=== PATIENT | female | born 1965 | race Caucasian/White ===

== ENCOUNTER 2018-05-14 14:17 | Emergency (ER) | payer OTHER ==
--- NOTE | 2018-05-14 14:41 | PDOC ---
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
[2018-05-14 14:42] VITALS: BP 110/75; PULSE 85; BMI 28.8
[2018-05-14 15:11] LABS: BASO % 0.6 % (0-2.0); EOS % 0.8 % (0-4.5); HEMATOCRIT 32.8 % (32.4-45.2); HEMOGLOBIN 10.4 GM/dL (10.7-15.3); LYMPH % 24.3 % (8-40); MCH 22.4 pg (25.7-33.7); MCHC 31.8 g/dl (32.0-36.0); MEAN CELL VOLUME 70.5 fl (80-96); MEAN PLT VOLUME 8.2 fl (7.5-11.1); MONO % 1.1 % (3.8-10.2); NEUT % 73.2 % (42.8-82.8); PLATELET COUNT 517 K/MM3 (134-434); RBC 4.65 M/mm3 (3.60-5.2); RDW 17.2 % (11.6-15.6); WHITE BLOOD COUNT 14.1 K/mm3 (4.0-10.0)
[2018-05-14 15:31] LABS: URINE APPEARANCE CLEAR; URINE BILIRUBIN NEGATIVE (<2.0 mg/dL); URINE COLOR STRAW; URINE GLUCOSE (UA) NEGATIVE (NEGATIVE); URINE KETONE NEGATIVE (NEGATIVE); URINE LEUK ESTERASE 3+ (NEGATIVE); URINE NITRITE NEGATIVE (NEGATIVE); URINE PROTEIN NEGATIVE (NEGATIVE); URINE UROBILINOGEN NEGATIVE mg/dL (0.2-1.0)
--- NOTE | 2018-05-14 15:34 | PDOC ---
History of Present Illness - General Chief Complaint: Lightheaded Stated Complaint: DIZZY Time Seen by Provider: 05/14/18 14:36 History Source: Patient - History of Present Illness Associated Symptoms: reports: fever/chills, nausea/vomiting. denies: chest pain , headaches, shortness of breath Past History - Past Medical History Allergies/Adverse Reactions: Allergies Allergy/AdvReac Type Severity Reaction Status Date / Time ibuprofen [From Advil] AdvReac Verified 05/14/18 14:38 Home Medications: Ambulatory Orders Metoclopramide HCl [Reglan] 5 mg PO TID 03/01/15 Omeprazole Magnesium [Prilosec (OTC)] 40 mg PO DAILY 03/01/15 Sulfamethoxazole/Trimethoprim [Bactrim Ds Tablet] 1 each PO BID #14 tablet 05/14 Anemia: Yes Asthma: No Cancer: No Cardiac Disorders: No CVA: No COPD: No CHF: No Dementia: No Diabetes: No GI Disorders: Yes Disorders: No HTN: No Hypercholesterolemia: No Liver Disease: No Seizures: No Thyroid Disease: No - Surgical History Abdominal Surgery: Yes (GASTRIC BYPASS-1999) Appendectomy: No Cardiac Surgery: No Cholecystectomy: No Lung Surgery: No Neurologic Surgery: No Orthopedic Surgery: No - Suicide/Smoking/Psychosocial Hx Smoking Status: No Smoking History: Never smoked Have you smoked in the past 12 months: No Number of Cigarettes Smoked Daily: 0 Hx Alcohol Use: No Drug/Substance Use Hx: No Substance Use Type: None Hx Substance Use Treatment: No Review of Systems - Review of Systems Constitutional: Yes: Chills Respiratory: No: Shortness of Breath Cardiac (ROS): No: Chest Pain ABD/GI: Yes: Nausea. No: Diarrhea, Vomiting, Abdominal cramping : No: Dysuria *Physical Exam - Vital Signs Last Vital Signs Temp Pulse Resp BP Pulse Ox 97.5 F L 85 16 110/75 99 05/14/18 14:38 05/14/18 14:38 05/14/18 14:38 05/14/18 14:38 05/14/18 14:38 - Physical Exam General Appearance: Yes: Appropriately Dressed. No: Apparent Distress HEENT: positive: Normal Voice Neck: positive: Supple Respiratory/Chest: positive: Lungs Clear, Normal Breath Sounds. negative: Respiratory Distress Cardiovascular: positive: Regular Rate, S1, S2 Gastrointestinal/Abdominal: positive: Soft. negative: Tender Musculoskeletal: negative: CVA Tenderness Integumentary: positive: Dry, Warm Neurologic: positive: Fully Oriented, Alert, Normal Mood/Affect Moderate Sedation - Procedure Monitoring Vital Signs: Procedure Monitoring Vital Signs Temperature 97.5 F L 05/14/18 14:38 Pulse Rate 85 05/14/18 14:38 Respiratory Rate 16 05/14/18 14:38 Blood Pressure 110/75 05/14/18 14:38 O2 Sat by Pulse Oximetry (%) 99 05/14/18 14:38 ED Treatment Course - LABORATORY CBC & Chemistry Diagram: 05/14/18 15:02 05/14/18 15:02 - ADDITIONAL ORDERS Additional order review: 05/14/18 15:02 RBC 4.65 MCV 70.5 L MCHC 31.8 L RDW 17.2 H MPV 8.2 Neutrophils % 73.2 D Lymphocytes % 24.3 Monocytes % 1.1 L D Eosinophils % 0.8 D Basophils % 0.6 Medical Decision Making - Medical Decision Making 05/14/18 15:33 53-year-old female, history of NIDDM, 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 Since her surgery, pt has had to have an MRI +/- contrast every 6 months and had her follow-up MRI this morning. Patient works at [employer] and after walking back to her office after MRI, developed symptoms. States she feels a lot better at this time and denies chest pain, shortness of breath or diaphoresis. No abd pain, change in BM, dysuria, cough or body aches See exam Sudden onset chills and nbausea, since imporved Stable w/ unrmearkable exam -labs/ua/cxr -reassess 05/14/18 17:[address] Osorio, states patient appears pale and recommends IVF. Of note rpt T 98.6F. Per MD, will tx for possible early UTI given wbc of 14 and 3+ LE on ua. Of note, CXR read as no obvious pneumonia, but ? L base density, patient to follow-up. Patient made aware and will follow-up with her PMD. 05/14/18 18:09 Pt s/p IVF and a dose of ceftriaxone. Feeling better at this time and feels safe being discharged with antibiotics for possible UTI. Strict return precautions given to patient *DC/Admit/Observation/Transfer Diagnosis at time of Disposition: Chills - Discharge Dispostion Disposition: HOME Condition at time of disposition: Improved - Prescriptions Prescriptions: Sulfamethoxazole/Trimethoprim [Bactrim Ds Tablet] 1 each PO BID #14 tablet - Referrals Referrals: Cornell Acevedo MD [Primary Care Provider] - - Patient Instructions Printed Discharge Instructions: DI for Urinary Tract Infection (UTI) Additional Instructions: Based on your blood work and a urine, you may have a possible UTI Please continue antibiotics and follow-up with your PMD. If symptoms worsen, return to ER immediately - Post Discharge Activity
[2018-05-14 15:45] LABS: EPI CELLS RARE /HPF (FEW); URINE MUCUS RARE
[2018-05-14 15:53] LABS: ALBUMIN 3.5 g/dl (3.4-5.0); ALK PHOS 420 U/L (45-117); ANION GAP 10 MMOL/L (8-16); BILIRUBIN,TOTAL 0.2 mg/dL (0.2-1); BLOOD UREA NITROGEN 17 mg/dL (7-18); CALCIUM 9.1 mg/dL (8.5-10.1); CHLORIDE 104 mmol/L (98-107); CO2 25 mmol/L (21-32); CREATININE 0.7 mg/dL (0.55-1.3); GLUCOSE,RANDOM 79 mg/dL (74-106); MAGNESIUM 1.6 mg/dL (1.8-2.4); POTASSIUM 4.3 mmol/L (3.5-5.1); SGOT/AST 25 U/L (15-37); SGPT/ALT 24 U/L (13-61); SODIUM 139 mmol/L (136-145); TOT PROT 7.4 g/dl (6.4-8.2)
[2018-05-14 16:40] VITALS: TEMP 98.6
[2018-05-14] MEDS ORDERED: SODIUM CHLORIDE 1,000 ML IV STA (17:01)
[2018-05-14] MEDS ORDERED: CEFTRIAXONE 1 GM/50 ML BAG ONE (17:40)
--- NOTE | 2018-05-15 13:18 | EKG ---
Test Reason : Blood Pressure : / mmHG Vent. Rate : 079 BPM Atrial Rate : 079 BPM P-R Int : 110 ms QRS Dur : 086 ms QT Int : 382 ms P-R-T Axes : 054 056 062 degrees QTc Int : 438 ms SINUS RHYTHM WITH SHORT CA WITH PREMATURE SUPRAVENTRICULAR COMPLEXES OTHERWISE NORMAL ECG WHEN COMPARED WITH ECG OF 15-OCT-2013 11:42, PREMATURE SUPRAVENTRICULAR COMPLEXES ARE NOW PRESENT Confirmed by MARK SAHU, AME ([id number]) on 05/15/2018 1:17:33 PM Referred By: Confirmed By:AME FLORES MD
== END 2018-05-14 18:38 | disposition home or self-care (01) ==
LOC: JER 14:17
PROC: 3E0337Z Introduction of Electrolytic and Water Balance Substance into Peripheral Vein, Percutaneous Approach (ICD-10-PCS; principal; 2018-05-14)
PROC: 3E03329 Introduction of Other Anti-infective into Peripheral Vein, Percutaneous Approach (ICD-10-PCS; 2018-05-14)
DX: N39.0 Urinary tract infection, site not specified (principal); R68.83 Chills (without fever); E11.9 Type 2 diabetes mellitus without complications; Z79.84 Long term (current) use of oral hypoglycemic drugs
CPT/HCPCS: 36415; 71046-TC-FY; 80053; 81003; 81015; 82550; 83735; 84484; 85025; 87086; 93005; 93010; 99283-25; J7030

== ENCOUNTER 2018-12-12 13:00 | Inpatient (IN) | payer OTHER ==
--- NOTE | 2018-12-12 13:38 | PDOC ---
History of Present Illness - General Chief Complaint: Pain, Acute Stated Complaint: FEVER/ CHILLS/ ABD PAIN Time Seen by Provider: 12/12/18 13:36 History Source: Patient Exam Limitations: No Limitations - History of Present Illness Initial Comments: 12/12/18 13:37 53yo woman pmh DM2, pancreatic neuroendocrine tumor s/p whipple in 2017 presenting with fever / chills / nausea for 2 days and 1 day of RUQ pain. Patient reports mild, non-radiating, RUQ pain over the past day. Denies vomiting , urinary symptoms, back pain, chest pain, SOB. Has not eaten for 2 days 2/2 nausea. Endorses regular bowel movements. Today felt light headed and called her daughter to present to the ED. [employer] employee. Denies having her appendix removed. CT scan on 12/08 demonstrating increased stool burden, stable adenopathy and pneumobilia c/w prior scans. PCP: Dr. Acevedo All: Ibuprofen - told to not take post-whipple Meds: Metformin 500 BID, Omeprazole, Magnesium PMH: as above PSH: as above SHx: denies smoking or illicits Past History - Travel Traveled outside of the country in the last 30 days: No Close contact w/someone who was outside of country & ill: No - Past Medical History Allergies/Adverse Reactions: Allergies Allergy/AdvReac Type Severity Reaction Status Date / Time ibuprofen [From Advil] AdvReac Verified 12/12/18 13:18 Home Medications: Ambulatory Orders Omeprazole Magnesium [Prilosec (OTC)] 40 mg PO DAILY 03/01/15 Naproxen/Esomeprazole Mag [Vimovo Dr 375-20 mg Tablet] 0 tab PO DAILY PRN metFORMIN HCL [Metformin HCl] 500 mg PO BID 12/12/18 Anemia: Yes Asthma: No Cancer: No Cardiac Disorders: No CVA: No COPD: No CHF: No Dementia: No Diabetes: No GI Disorders: Yes Disorders: No HTN: No Hypercholesterolemia: No Liver Disease: No Seizures: No Thyroid Disease: No - Surgical History Abdominal Surgery: Yes (GASTRIC BYPASS-1999, whipple 2016) Appendectomy: No Cardiac Surgery: No Cholecystectomy: No Lung Surgery: No Neurologic Surgery: No Orthopedic Surgery: No - Suicide/Smoking/Psychosocial Hx Smoking Status: No Smoking History: Never smoked Have you smoked in the past 12 months: No Number of Cigarettes Smoked Daily: 0 Hx Alcohol Use: No Drug/Substance Use Hx: No Substance Use Type: None Hx Substance Use Treatment: No Review of Systems - Review of Systems Able to Perform ROS?: Yes Is the patient limited Congolese proficient: No Constitutional: Yes: Chills, Fever, Loss of Appetite. No: Malaise, Weakness HEENTM: No: Eye Pain, Nose Pain, Nose Congestion, Throat Pain Respiratory: No: Cough, Shortness of Breath, Wheezing Cardiac (ROS): No: Chest Pain, Irregular Heart Rate, Palpitations, Syncope, Chest Tightness ABD/GI: Yes: See HPI, Nausea, Poor Appetite. No: Blood Streaked Bowels, Constipated, Diarrhea, Vomiting : No: Burning, Discharge, Hematuria, Incontinence Musculoskeletal: No: Symptoms Reported, Back Pain, Joint Pain, Muscle Weakness Integumentary: No: Symptoms Reported, Bruising, Dryness, Flushing, Pruritus, Rash Neurological: No: Headache, Numbness, Tingling Psychiatric: No: Anxiety, Emotional Problems Hematologic/Lymphatic: No: Anemia, Blood Clots, Easy Bruising All Other Systems: Reviewed and Negative *Physical Exam - Vital Signs Last Vital Signs Temp Pulse Resp BP Pulse Ox 98.0 F 114 H 16 103/66 97 12/12/18 13:15 12/12/18 13:15 12/12/18 13:15 12/12/18 13:15 12/12/18 13:15 - Physical Exam Comments: 12/12/18 15:02 Vitals reviewed, notable for tachycardia to 114 Gen: WDWN woman, appears stated age, no acute distress, resting in bed CV: RRR, nl s1/s2, no murmurs appreciated Pulm: CTABL, normal WOB, no wheezes / rales / rhonchi Abd: Soft, nondistended, old surgical scars throughout, tender to palpation RUQ , negative hebert sign, negative rovsing sign, no pain at mcburney's point, no rebound tenderness or guarding, non-peritoneal Ext: WWP, no clubbing / cyanosis / edema Pulses: 2+ radial and PT Neuro: alert and oriented, MAEE, CN grossly intact ED Treatment Course - LABORATORY CBC & Chemistry Diagram: 12/12/18 14:38 12/12/18 14:38 Medical Decision Making - Medical Decision Making 12/12/18 13:37 53yo woman pmh DM2, pancreatic neuroendocrine tumor s/p whipple in 2017 presenting with fever / chills / nausea for 2 days and 1 day of RUQ pain. History notable for prior whipple surgery and intermittent similar presentations , normal BMs and no urinary symptoms. Exam notable for tachycardia to 114, RUQ tenderness with negative hebert's sign and normal abdomen otherwise. Concerning for biliary pathology (pneumobilia on CT of unclear significance) vs appendicitis vs pain 2/2 adhesion after major abdominal surgery vs constipation vs less likely kidney stone or r/o perforation vs abscess (unlikely given timeframe, recent CT, exam nonperitoneal). -CBC, CMP, Lipase, UA -1L IVF -1g IV Tylenol, 4mg Zofran 12/12/18 15:37 -Leukocytosis 19.7 (up from 12 earlier this week) -Lipase 44 -Alp Phos at elevated baseline (403) -LFTs wnl -UA without blood or UTI -Random glucose 139 -CTAP with oral and IV contrast (oral given at 3:30PM) 12/12/18 19:30 -CTAP demonstrating known postsurgical changes, ventral hernia, nonspecific lymphadenopathy, and lytic and sclerotic osseous lesions in the sacrum and iliac bones. Dispo: Admit for ?malignancy, abdominal pain, leukocytosis *DC/Admit/Observation/Transfer Diagnosis at time of Disposition: Concern about cancer without diagnosis, Abdominal pain Leukocytosis, unspecified Qualifiers: Leukocytosis type: unspecified Qualified Code(s): D72.829 - Elevated white blood cell count, unspecified - Discharge Dispostion Condition at time of disposition: Stable Decision to Admit order: Yes - Referrals Referrals: Cornell Acevedo MD [Primary Care Provider] - - Patient Instructions - Post Discharge Activity
[2018-12-12] MEDS ORDERED: SODIUM CHLORIDE 1,000 ML IV STA (14:18)
[2018-12-12] MEDS ORDERED: ONDANSETRON 4 MG/2 ML VIAL IVPUSH ONE (14:18)
[2018-12-12] MEDS ORDERED: ACETAMINOPHEN 1000 MG/100 ML VIAL (NON FORMULARY) IVPB ONE ×2 (14:18→20:19)
[2018-12-12] MEDS ORDERED: ONDANSETRON 4 MG/2 ML VIAL ONE (14:27)
[2018-12-12] MEDS ORDERED: ACETAMINOPHEN INJECTION 100 ML IVPB ONE ×2 (14:27→20:31)
[2018-12-12 14:47] LABS: BASO % 0.8 % (0-2.0); EOS % 0.1 % (0-4.5); HEMATOCRIT 32.7 % (32.4-45.2); HEMOGLOBIN 10.2 GM/dL (10.7-15.3); LYMPH % 7.8 % (8-40); MCH 21.9 pg (25.7-33.7); MCHC 31.2 g/dl (32.0-36.0); MEAN CELL VOLUME 70.3 fl (80-96); MONO % 7.3 % (3.8-10.2); PLATELET COUNT 516 K/MM3 (134-434); RBC 4.66 M/mm3 (3.60-5.2); WHITE BLOOD COUNT 19.7 K/mm3 (4.0-10.0)
[2018-12-12 15:16] LABS: ALBUMIN 3.5 g/dl (3.4-5.0); BILIRUBIN,TOTAL 0.5 mg/dL (0.2-1); BLOOD UREA NITROGEN 14.4 mg/dL (7-18); CALCIUM 9.5 mg/dL (8.5-10.1); CREATININE 0.8 mg/dL (0.55-1.3); TOT PROT 7.2 g/dl (6.4-8.2)
[2018-12-12 15:26] LABS: PH,URINE 5.5 (5.0-8.0); URINE APPEARANCE CLOUDY; URINE BILIRUBIN NEGATIVE (NEGATIVE); URINE COLOR DK YELLOW; URINE GLUCOSE (UA) NEGATIVE (NEGATIVE); URINE KETONE 2+ (NEGATIVE); URINE LEUK ESTERASE NEGATIVE (NEGATIVE); URINE NITRITE NEGATIVE (NEGATIVE); URINE PROTEIN TRACE (NEGATIVE); URINE UROBILINOGEN 0.2 mg/dL (0.2-1.0)
[2018-12-12 15:28] LABS: ANISOCYTOSIS 1+; OVALOCYTE 1+
--- NOTE | 2018-12-12 17:04 | PDOC ---
Documentation entered by Gail Black SCRIBE, acting as scribe for Michelle Osorio MD. Michelle Osorio MD: This documentation has been prepared by the christaibe, Gail Black SCRIBE, under my direction and personally reviewed by me in its entirety. I confirm that the documentation accurately reflects all work, treatment, procedures, and medical decision making performed by me. Attending Attestation - Resident Resident Name: Jacobo Perez - ED Attending Attestation I have performed the following: I have examined & evaluated the patient, The case was reviewed & discussed with the resident, I agree w/resident's findings & plan, Exceptions are as noted - HPI HPI: 12/12/18 16:09 The patient is a 53-year-old female with a past medical history significant for pancreatic neuroendocrine tumor s/p whipple, pneumobilia and cholecystectomy presents to the emergency department with a 1-day history of right upper quadrant abdominal pain, associated with nausea, fever, chills, and discolored urine. Denies vomiting. The patient reports shes able to have normal bowel movements, nonbloody, last BM was earlier today. Denies prior similar pain. The patient reports having a CT done on the for epigastric/Left upper quadrant pain, which has resolved since the presentation. Denies headache, focal weakness/numbness, CP, SOB, LE edema, urinary sxs. Allergies: ibuprofen Social history: No reported history of tobacco, alcohol and recreational drugs. PCP: Dr. Ga Acevedo. - Physicial Exam PE: 12/12/18 15:31 GENERAL: Awake, alert, and fully oriented, in no acute distress HEAD: No signs of trauma EYES: PERRLA, EOMI, sclera anicteric, conjunctiva clear ENT: Auricles normal inspection, hearing grossly normal, nares patent, oropharynx clear without exudates. Moist mucosa NECK: Normal ROM, supple, no lymphadenopathy, JVD, or masses LUNGS: Breath sounds equal, clear to auscultation bilaterally. No wheezes, and no crackles HEART: Tachycardic to 108 but regular, normal S1 and S2, no murmurs, rubs or gallops ABDOMEN: Soft, mild R mid abd ttp, normoactive bowel sounds. No guarding, no rebound. No masses EXTREMITIES: Normal range of motion, no edema. No clubbing or cyanosis. No cords, erythema, or tenderness NEUROLOGICAL: Normal speech, cranial nerves intact, equal strength and sensation b/l SKIN: Diffuse areas of hypopigmentation. Otherwise, warm, Dry, normal turgor, no rashes or lesions noted. - Medical Decision Making 12/12/18 15:43 53yo F hx neuroendocrine tumor s/p whipp[place]ilino presents to the ED with R sided abd pain. Vitals with tachycardia to 114, otherwise wnl. Will obtain rectal temp DDx includes appendicitis vs renal colic vs colitis vs enteritis vs MSK pain Plan for labs, UA, CTAP, dispo 12/12/18 17:02 Leukocytosis to 19 today, pt has labs from last thursday, WBC was 12. Pt drank Po contrast for CTAP starting 330, CTAP @ 530 Labs otherwise unremarkable, UA negative for infx
[2018-12-12] MEDS ORDERED: SODIUM CHLORIDE 250 ML IV STA (20:14)
--- NOTE | 2018-12-12 20:21 | HP ---
CHIEF COMPLAINT:fever, chills since Thursday and right upper quadrant pain which started this morning PCP:Dr. Cornell Acevedo HISTORY OF PRESENT ILLNESS: 53 year old female with history of diabetes mellitus, and a bengin tumor with whipple procedure in 2016 and gastric bypass surgery in who presented from home with symptoms of fever and chills for the past 2 days. She reports she developed right upper quadrant pain this morning. She denied chest pain, shortness of breath, nausea, vomiting , diarrhea or constipation. Upon evaluation in the ER she was found to have a WBC of 19,000 with abnormal differntial, alk phosphatase 403, normal LFT's, amylase and creatinine. UA is normal. CT scan of abdomen was abnormal demonstrating lymphadenopathy with osseous lesions concerning for malignancy. Patient is currently afebrile and blood pressures are ranging soft. She is receiving a normal saline fluid bolus and she will be started on NS at 75cc/hr. She was ordered for ceftriaxone 1gram .She is being admitted for further medical management and Gastroenterology- Dr. Todd and Infectious Diseases-Dr. Marc has been consulted. Recent Travel: denies PAST MEDICAL HISTORY: diabetes mellitus benign tumor PAST SURGICAL HISTORY: Whipple procedure in 2017 Gastric bypass in 2009 Social History: Smoking:no Alcohol:no Drugs: no Family History: Mother had leukemia (in remission) and diabetes mellitus, alive. Father has diabetes and heart disease,alive. Allergies ibuprofen [From Advil] Adverse Reaction HOME MEDICATIONS: Home Medications Medication Instructions Recorded Omeprazole Magnesium [Prilosec 40 mg PO DAILY 03/01/15 (OTC)] Naproxen/Esomeprazole Mag [Vimovo 0 tab PO DAILY PRN 12/12/18 375-20 mg Tablet] metFORMIN HCL [Metformin HCl] 500 mg PO BID 12/12/18 REVIEW OF SYSTEMS CONSTITUTIONAL: Absent: fever, chills, diaphoresis, generalized weakness, malaise, loss of appetite, weight change HEENT: Absent: rhinorrhea, nasal congestion, throat pain, throat swelling, difficulty swallowing, mouth swelling, ear pain, eye pain, visual changes CARDIOVASCULAR: Absent: chest pain, syncope, palpitations, irregular heart rate, lightheadedness , peripheral edema RESPIRATORY: Absent: cough, shortness of breath, dyspnea with exertion, orthopnea, wheezing, stridor, hemoptysis GASTROINTESTINAL: Absent: right upper quadrant pain, abdominal distension, nausea, vomiting, diarrhea, constipation, melena, hematochezia GENITOURINARY: Absent: dysuria, frequency, urgency, hesitancy, hematuria, flank pain, genital pain MUSCULOSKELETAL: Absent: myalgia, arthralgia, joint swelling, back pain, neck pain SKIN: Absent: rash, itching, pallor HEMATOLOGIC/IMMUNOLOGIC: Absent: easy bleeding, easy bruising, lymphadenopathy, frequent infections ENDOCRINE: Absent: unexplained weight gain, unexplained weight loss, heat intolerance, cold intolerance NEUROLOGIC: Absent: headache, focal weakness or paresthesias, dizziness, unsteady gait, seizure, mental status changes, bladder or bowel incontinence PSYCHIATRIC: Absent: anxiety, depression, suicidal or homicidal ideation, hallucinations. PHYSICAL EXAMINATION Vital Signs - 24 hr 12/12/18 13:15 Temperature 98.0 F Pulse Rate 114 H Respiratory 16 Rate Blood Pressure 103/66 O2 Sat by Pulse 97 Oximetry (%) GENERAL: awake alert and fully oriented no acute distress HEAD: normal EYES: pupils equal, round and reactive to light EARS, NOSE, THROAT: ears normal, nares patent NECK: normal range of motion LUNGS: breath sounds equal and clear to auscultation bilaterally wheezes, and no crackles. No accessory muscle use. HEART: Regular rate and rhythm, normal S1 and S2 without murmur, rub or gallop. ABDOMEN: Soft, nontender, not distended, normoactive bowel sounds, no guarding, no rebound, no masses. No hepatomegaly or splenomegaly. MUSCULOSKELETAL: Normal range of motion at all joints. No bony deformities or tenderness. No CVA tenderness. UPPER EXTREMITIES: 2+ pulses, warm, well-perfused. No cyanosis. No clubbing. No peripheral edema. LOWER EXTREMITIES: 2+ pulses, warm, well-perfused. No calf tenderness. No peripheral edema. NEUROLOGICAL: Cranial nerves II-XII intact. Normal speech. Normal gait. PSYCHIATRIC: Cooperative. Good eye contact. Appropriate mood and affect. SKIN: Warm, dry, normal turgor, no rashes or lesions noted, normal capillary refill. Laboratory Results - last 24 hr 12/12/18 12/12/18 12/12/18 14:38 14:38 14:38 WBC 19.7 H RBC 4.66 Hgb 10.2 L Hct 32.7 MCV 70.3 L MCH 21.9 L MCHC 31.2 L RDW 17.0 H Plt Count 516 H MPV 8.0 Absolute Neuts (auto) 16.5 H Neutrophils % 84.0 H Lymphocytes % 7.8 L D Monocytes % 7.3 D Eosinophils % 0.1 D Basophils % 0.8 Nucleated RBC % 0 Anisocytosis 1+ Microcytosis 1+ Ovalocytes 1+ Sodium 137 Potassium 4.0 Chloride 102 Carbon Dioxide 25 Anion Gap 9 BUN 14.4 Creatinine 0.8 Est GFR (CKD-EPI)AfAm 98.24 Est GFR (CKD-EPI)NonAf 84.76 Random Glucose 139 H Calcium 9.5 Total Bilirubin 0.5 AST 31 ALT 26 Alkaline Phosphatase 403 H Total Protein 7.2 Albumin 3.5 Lipase 44 L Urine Color Urine Appearance Urine pH Ur Specific [place] Urine Protein Urine Glucose (UA) Urine Ketones Urine Blood Urine Nitrite Urine Bilirubin Urine Urobilinogen Ur Leukocyte Esterase 12/12/18 15:13 WBC RBC Hgb Hct MCV MCH MCHC RDW Plt Count MPV Absolute Neuts (auto) Neutrophils % Lymphocytes % Monocytes % Eosinophils % Basophils % Nucleated RBC % Anisocytosis Microcytosis Ovalocytes Sodium Potassium Chloride Carbon Dioxide Anion Gap BUN Creatinine Est GFR (CKD-EPI)AfAm Est GFR (CKD-EPI)NonAf Random Glucose Calcium Total Bilirubin AST ALT Alkaline Phosphatase Total Protein Albumin Lipase Urine Color Dk yellow Urine Appearance Cloudy Urine pH 5.5 D Ur Specific [place] 1.020 Urine Protein Trace Urine Glucose (UA) Negative Urine Ketones 2+ H Urine Blood Negative Urine Nitrite Negative Urine Bilirubin Negative Urine Urobilinogen 0.2 Ur Leukocyte Esterase Negative ASSESSMENT/PLAN: 53 year old female with history of diabetes mellitus, bengin tumor with whipple procedure in 2016 and gastric bypass surgery in who presented with symptoms of fever and chills for the past 2 days and today she developed right upper quadrant pain. She was found to have a WBC of 19,000 with abnormal differential, and an elevated alk phosphatase. CT scan of abdomen was abnormal demonstrated lymphadenopathy with osseous lesions concerning for malignancy/ metastasis. Patient denies prior history of cancer. #1 RUQ Abdominal Pain/Fever/Leukocytosis/ ?Sepsis Abnormal workup -WBC19,000, increased from 12,000 5 days ago, elevated alk phosphatase. CT scan of abdomen with contrast demonstrated lymphadenopathy and osseous lesions concerning for malignancy, blood pressures ranging soft, Lactic acid, urine and blood cultures pending Received one dose of Ceftriaxone 1 gm and continued on Ceftriaxone [address] Ospina- Infectious Diseases consulted Dr. Todd- GI consulted Continue with Tylenol IV for pain control, avoid morphine with hypotension #2 Diabetes Mellitus Metformin is currently on hold for 48 hours due to receiving IV contrast dye with CT of abdomen Continue with blood glucose monitoring DVT SCD's and TEDS FEN NPO, IVF NS at 75cc/hr Visit type - Emergency Visit Emergency Visit: Yes ED Registration Date: 12/12/18 Care time: The patient presented to the Emergency Department on the above date and was hospitalized for further evaluation of their emergent condition. - New Patient This patient is new to me today: Yes Date on this admission: 12/12/18 - Critical Care Critical Care patient: No
[2018-12-12] MEDS ORDERED: CEFTRIAXONE 1 GM/50 ML BAG ONE (20:32)
[2018-12-12] MEDS: CEFTRIAXONE 1 GM in DEXTROSE 5%-WATER - 50 ML IVPB SCH (20:39)
[2018-12-13 07:39] LABS: BASO % 0.6 % (0-2.0); EOS % 0.3 % (0-4.5); HEMATOCRIT 30.5 % (32.4-45.2); HEMOGLOBIN 9.5 GM/dL (10.7-15.3); LYMPH % 8.6 % (8-40); MCH 22.1 pg (25.7-33.7); MCHC 31.3 g/dl (32.0-36.0); MEAN CELL VOLUME 70.7 fl (80-96); MEAN PLT VOLUME 8.4 fl (7.5-11.1); MONO % 7.4 % (3.8-10.2); NEUT % 83.1 % (42.8-82.8); PLATELET COUNT 490 K/MM3 (134-434); RBC 4.31 M/mm3 (3.60-5.2); RDW 16.8 % (11.6-15.6); WHITE BLOOD COUNT 16.2 K/mm3 (4.0-10.0)
--- NOTE | 2018-12-13 07:56 | CON.GI ---
Consult Consult Specialty:: GI Reason for Consultation:: abdominal pain - History of Present Illness History of Present Illness: 53 y/o F with PMH of splenectomy, mid and distal pancreatectomy wasdoung well untile 2 weeks ago when she developed epigastricpain which resolved spontaneously. 1 day prior to admission she developed ruq pain 6/10 associated with chills, no fever, no nausea and vomiting. Previous MRI and CT has interval hepatic neoplasm of unknown behavior. This morning ruq pain and chills resolved. Panculture was done. 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 History of Recent Travel: No Home Medications - Allergies Allergies/Adverse Reactions: Allergies Allergy/AdvReac Type Severity Reaction Status Date / Time ibuprofen [From Advil] AdvReac Verified 12/12/18 13:18 - Home Medications Home Medications: Ambulatory Orders Omeprazole Magnesium [Prilosec (OTC)] 40 mg PO DAILY 03/01/15 Naproxen/Esomeprazole Mag [Vimovo Dr 375-20 mg Tablet] 0 tab PO DAILY PRN metFORMIN HCL [Metformin HCl] 500 mg PO BID 12/12/18 Physical Exam-GI Vital Signs: Vital Signs Temperature 98.5 F 12/13/18 06:11 Pulse Rate 81 12/13/18 06:11 Respiratory Rate 20 12/13/18 06:11 Blood Pressure 92/58 L 12/13/18 06:11 O2 Sat by Pulse Oximetry (%) 99 12/12/18 22:27 Constitutional: Yes: Well Nourished Eyes: Yes: Conjunctiva Clear HENT: Yes: Atraumatic Neck: Yes: Trachea Midline Cardiovascular: Yes: Regular Rate and Rhythm Respiratory: Yes: CTA Bilaterally ...Palpate: Yes: Soft. No: Firm/Rigid, Guarding, Hepatomegaly, Mass, Pulsatile Mass, Splenomegaly, Tenderness Labs: CBC,CMP WBC 19.7 K/mm3 (4.0-10.0) H 12/12/18 14:38 RBC 4.66 M/mm3 (3.60-5.2) 12/12/18 14:38 Hgb 10.2 GM/dL (10.7-15.3) L 12/12/18 14:38 Hct 32.7 % (32.4-45.2) 12/12/18 14:38 MCV 70.3 fl (80-96) L 12/12/18 14:38 MCH 21.9 pg (25.7-33.7) L 12/12/18 14:38 MCHC 31.2 g/dl (32.0-36.0) L 12/12/18 14:38 RDW 17.0 % (11.6-15.6) H 12/12/18 14:38 Plt Count 516 K/MM3 (134-434) H 12/12/18 14:38 MPV 8.0 fl (7.5-11.1) 12/12/18 14:38 Absolute Neuts (auto) 16.5 K/mm3 (1.5-8.0) H 12/12/18 14:38 Neutrophils % 84.0 % (42.8-82.8) H 12/12/18 14:38 Lymphocytes % 7.8 % (8-40) L D 12/12/18 14:38 Monocytes % 7.3 % (3.8-10.2) D 12/12/18 14:38 Eosinophils % 0.1 % (0-4.5) D 12/12/18 14:38 Basophils % 0.8 % (0-2.0) 12/12/18 14:38 Nucleated RBC % 0 % (0-0) 12/12/18 14:38 Anisocytosis 1+ 12/12/18 14:38 Microcytosis 1+ 12/12/18 14:38 Ovalocytes 1+ 12/12/18 14:38 Sodium 137 mmol/L (136-145) 12/12/18 14:38 Potassium 4.0 mmol/L (3.5-5.1) 12/12/18 14:38 Chloride 102 mmol/L (98-107) 12/12/18 14:38 Carbon Dioxide 25 mmol/L (21-32) 12/12/18 14:38 Anion Gap 9 MMOL/L (8-16) 12/12/18 14:38 BUN 14.4 mg/dL (7-18) 12/12/18 14:38 Creatinine 0.8 mg/dL (0.55-1.3) 12/12/18 14:38 Est GFR (CKD-EPI)AfAm 98.24 12/12/18 14:38 Est GFR (CKD-EPI)NonAf 84.76 12/12/18 14:38 POC Glucometer 129 UNITS (80-120) 12/13/18 05:32 Random Glucose 139 mg/dL (74-106) H 12/12/18 14:38 Lactic Acid 1.0 mmol/L (0.4-2.0) 12/12/18 20:50 Calcium 9.5 mg/dL (8.5-10.1) 12/12/18 14:38 Total Bilirubin 0.5 mg/dL (0.2-1) 12/12/18 14:38 AST 31 U/L (15-37) 12/12/18 14:38 ALT 26 U/L (13-61) 12/12/18 14:38 Alkaline Phosphatase 403 U/L (45-117) H 12/12/18 14:38 Total Protein 7.2 g/dl (6.4-8.2) 12/12/18 14:38 Albumin 3.5 g/dl (3.4-5.0) 12/12/18 14:38 Lipase 44 U/L (73-393) L 12/12/18 14:38 Problem List - Problems (1) RUQ abdominal pain Assessment/Plan: etiology unclear R> advance diet EGD as an outpatient Code(s): R10.11 - RIGHT UPPER QUADRANT PAIN (2) Neoplasm of uncertain behavior of liver Assessment/Plan: R> await repeat ct AFP level, ca 19-9, ca125 Code(s): D37.6 - NEOPLASM OF UNCERTAIN BEHAVIOR OF LIVER, GB & BILE DUCT
[2018-12-13 08:00] LABS: ALBUMIN 2.9 g/dl (3.4-5.0); BILIRUBIN,TOTAL 0.5 mg/dL (0.2-1); BLOOD UREA NITROGEN 13.3 mg/dL (7-18); CALCIUM 9.1 mg/dL (8.5-10.1); CREATININE 0.6 mg/dL (0.55-1.3); TOT PROT 6.6 g/dl (6.4-8.2)
[2018-12-13] MEDS ORDERED: cefTRIAXone SODIUM 1 GM VIAL ONE (09:14)
[2018-12-13] MEDS ORDERED: DEXTROSE 5%-WATER - 50 ML IVPB ONE (09:14)
[2018-12-13] MEDS: PANTOPRAZOLE 40 MG TABLET (FP) PO SCH (09:32)
[2018-12-13] MEDS: CEFTRIAXONE 1 GM in DEXTROSE 5%-WATER - 50 ML IVPB SCH (09:32)
--- NOTE | 2018-12-13 09:41 | CON.ID ---
Consult Consult Specialty:: infectious diseases Referred by:: Lisa Reason for Consultation:: fever,chills,leukocytosis - History of Present Illness Chief Complaint: fever,chills ,rt upper quadrant pain History of Present Illness: 53 year old female with history of diabetes mellitus, and a bengin tumor with whipple procedure in 2016 and gastric bypass surgery in who presented from home with symptoms of fever and chills for the past 2 days started on sat She reports she developed right upper quadrant pain . She denied chest pain , shortness of breath, nausea, vomiting , diarrhea or constipation. 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 History of Recent Travel: No Home Medications - Allergies Allergies/Adverse Reactions: Allergies Allergy/AdvReac Type Severity Reaction Status Date / Time ibuprofen [From Advil] AdvReac Verified 12/12/18 13:18 - Home Medications Home Medications: Ambulatory Orders Omeprazole Magnesium [Prilosec (OTC)] 40 mg PO DAILY 03/01/15 Naproxen/Esomeprazole Mag [Vimovo Dr 375-20 mg Tablet] 0 tab PO DAILY PRN metFORMIN HCL [Metformin HCl] 500 mg PO BID 12/12/18 Review of Systems - Review of Systems Constitutional: reports: Chills, Fever Eyes: reports: No Symptoms HENT: reports: No Symptoms Neck: reports: No Symptoms Cardiovascular: reports: No Symptoms Respiratory: reports: No Symptoms Gastrointestinal: reports: Abdominal Pain (ruq) Genitourinary: reports: No Symptoms Musculoskeletal: reports: No Symptoms Integumentary: reports: No Symptoms Neurological: reports: No Symptoms Endocrine: reports: No Symptoms Hematology/Lymphatic: reports: No Symptoms Psychiatric: reports: No Symptoms Physical Exam Vital Signs: Vital Signs Temperature 98.4 F 12/13/18 09:22 Pulse Rate 82 12/13/18 09:22 Respiratory Rate 20 12/13/18 09:22 Blood Pressure 100/66 12/13/18 09:22 O2 Sat by Pulse Oximetry (%) 99 12/12/18 22:27 Constitutional: Yes: Well Nourished, No Distress, Calm Eyes: Yes: Conjunctiva Clear Cardiovascular: Yes: Regular Rate and Rhythm Respiratory: Yes: Regular, CTA Bilaterally Gastrointestinal: Yes: Normal Bowel Sounds, Soft Musculoskeletal: Yes: WNL Extremities: Yes: WNL Neurological: Yes: Alert, Oriented Psychiatric: Yes: Alert, Oriented Labs: CBC, BMP 12/13/18 06:55 12/13/18 06:55 Imaging - Results Cat Scan: Image Reviewed Assessment/Plan this patient with multiple medical problems coming with the above finding awaiting for official read of the ct scan currently she has no complaints has been afebrile since admission alp has increased there is worry about mets we will continue ceftriaxone for now await for blood cx monitor wbc once ct is officially read the lesion if present could have biopsy done monitor alp await for all results
--- NOTE | 2018-12-13 12:46 | PN ---
Progress Note, Physician Chief Complaint: no complaints, no pain no discomfort. History of Present Illness: 53 year old female with history of diabetes mellitus, and a benign tumor with whipple procedure in 2017 and gastric bypass surgery in 2010 who presented from home with symptoms of fever and chills for the past 2 days and then developed right upper quadrant pain. She denied chest pain, shortness of breath, nausea, vomiting , diarrhea or constipation. Upon evaluation in the ER she was found to have a WBC of 19,000 with abnormal differential, alk phosphatase 403, normal LFT 's, amylase and creatinine. CT scan of abdomen was abnormal demonstrating lymphadenopathy with osseous lesions concerning for malignancy. Patient is currently afebrile and blood pressures are ranging soft. She is receiving a normal saline fluid bolus and she will be started on NS at 75cc/hr. She was ordered for ceftriaxone 1gram .She is being admitted for further medical management with GI and ID consult. - Current Medication List Current Medications: Active Medications Ceftriaxone Sodium 1 gm/ (Dextrose) 50 mls @ 100 mls/hr IVPB DAILY [facility]; Protocol Last Admin: 12/13/18 09:32 Dose: 100 mls/hr Pantoprazole Sodium (Protonix -) 40 mg PO DAILY [facility] Last Admin: 12/13/18 09:32 Dose: 40 mg - Objective Vital Signs: Vital Signs Temperature 98.4 F 12/13/18 09:22 Pulse Rate 82 12/13/18 09:22 Respiratory Rate 20 12/13/18 09:22 Blood Pressure 100/66 12/13/18 09:22 O2 Sat by Pulse Oximetry (%) 96 12/13/18 09:00 Constitutional: Yes: Well Nourished, No Distress, Calm Eyes: Yes: WNL HENT: Yes: Atraumatic Neck: Yes: Supple Cardiovascular: Yes: Regular Rate and Rhythm Respiratory: Yes: Regular, CTA Bilaterally ...Rectal Exam: Yes: Hemorrhoids/Internal Genitourinary: Yes: WNL Musculoskeletal: Yes: WNL Extremities: Yes: WNL Edema: No Integumentary: Yes: WNL Neurological: Yes: WNL, Alert, Oriented ...Motor Strength: WNL Psychiatric: Yes: Alert, Oriented Labs: CBC, BMP 12/13/18 06:55 12/13/18 06:55 - ....Imaging Chest X-ray: Report Reviewed Problem List - Problems (1) Abdominal pain Assessment/Plan: Abnormal workup -WBC19,000, increased from 12,000 5 days ago, elevated alk phosphatase. WBC trending down. add chest xray to complete septic workup. lactic acid normal. CT scan of abdomen with contrast demonstrated lymphadenopathy and osseous lesions concerning for malignancy, blood pressures ranging soft, on Ceftriaxone [address] Hendrickson- Infectious Diseases consulted and following. GI following tumor markers pending. Code(s): R10.9 - UNSPECIFIED ABDOMINAL PAIN (2) Leukocytosis, unspecified Assessment/Plan: improving. on ceftriaxone pending blood/urine cultures. ID following. Code(s): D72.829 - ELEVATED WHITE BLOOD CELL COUNT, UNSPECIFIED Qualifiers: Leukocytosis type: unspecified Qualified Code(s): D72.829 - Elevated white blood cell count, unspecified (3) RUQ abdominal pain Assessment/Plan: improved. GI following. no nausea or vomiting Code(s): R10.11 - RIGHT UPPER QUADRANT PAIN (4) Chills Assessment/Plan: resolved. on antibiotics. Code(s): R68.83 - CHILLS (WITHOUT FEVER) (5) Dizziness Assessment/Plan: monitor Code(s): R42 - DIZZINESS AND GIDDINESS (6) Prophylactic measure Assessment/Plan: fen tolerating po monitor eletrolytes scds/teds/ambulation full code Code(s): Z29.9 - ENCOUNTER FOR PROPHYLACTIC MEASURES, UNSPECIFIED Visit type - Emergency Visit Emergency Visit: Yes ED Registration Date: 12/12/18 Care time: The patient presented to the Emergency Department on the above date and was hospitalized for further evaluation of their emergent condition. - New Patient This patient is new to me today: Yes Date on this admission: 12/13/18 - Critical Care Critical Care patient: No - Discharge Referral Referred to [facility] Med P.C.: No
[2018-12-13] MEDS: INSULIN SLIDING SCALE (NOVOLOG) 1 VIAL SQ SCH ×2 (16:30→21:15)
--- NOTE | 2018-12-13 18:36 | PN ---
Progress Note (short form) - Note Progress Note: all imaging reviewed-patient does not have liver neoplasm.This was reported in my note in error. Problem List - Problems (1) RUQ abdominal pain Code(s): R10.11 - RIGHT UPPER QUADRANT PAIN (2) Neoplasm of uncertain behavior of liver Code(s): D37.6 - NEOPLASM OF UNCERTAIN BEHAVIOR OF LIVER, GB & BILE DUCT
[2018-12-13] MEDS ORDERED: ACETAMINOPHEN 325 MG TABLET (FP) PO PRN (22:32)
[2018-12-13] MEDS ORDERED: ONDANSETRON 4 MG/2 ML VIAL IVPUSH PRN (22:43)
[2018-12-14] MEDS: INSULIN SLIDING SCALE (NOVOLOG) 1 VIAL SQ SCH ×2 (06:37→11:29)
[2018-12-14 08:05] LABS: BASO % 1.1 % (0-2.0); EOS % 2.3 % (0-4.5); HEMATOCRIT 28.8 % (32.4-45.2); LYMPH % 34.2 % (8-40); MCHC 31.3 g/dl (32.0-36.0); MEAN CELL VOLUME 70.2 fl (80-96); MEAN PLT VOLUME 8.7 fl (7.5-11.1); NEUT % 51.4 % (42.8-82.8); PLATELET COUNT 495 K/MM3 (134-434); RDW 16.7 % (11.6-15.6); WHITE BLOOD COUNT 10.8 K/mm3 (4.0-10.0)
--- NOTE | 2018-12-14 08:19 | PN ---
Progress Note, Physician History of Present Illness: 53 year old female with history of diabetes mellitus, and a benign tumor with whipple procedure in 2017 and gastric bypass surgery in 2010 who presented from home with symptoms of fever and chills for the past 2 days and then developed right upper quadrant pain. She denied chest pain, shortness of breath, nausea, vomiting , diarrhea or constipation. Upon evaluation in the ER she was found to have a WBC of 19,000 with abnormal differential, alk phosphatase 403, normal LFT 's, amylase and creatinine. CT scan of abdomen was abnormal demonstrating lymphadenopathy with osseous lesions concerning for malignancy. Patient is currently afebrile and blood pressures are ranging soft. She is receiving a normal saline fluid bolus and she will be started on NS at 75cc/hr. She was ordered for ceftriaxone 1gram .She is being admitted for further medical management with GI and ID consult. - Current Medication List Current Medications: Active Medications Acetaminophen (Tylenol -) 650 mg PO Q6H PRN PRN Reason: PAIN LEVEL 6-10 Ceftriaxone Sodium 1 gm/ (Dextrose) 50 mls @ 100 mls/hr IVPB DAILY [facility]; Protocol Last Admin: 12/13/18 09:32 Dose: 100 mls/hr Insulin Aspart (Novolog Vial Sliding Scale -) 1 vial SQ ACHS [facility]; Protocol Last Admin: 12/14/18 06:37 Dose: Not Given Ondansetron HCl (Zofran Injection) 4 mg IVPUSH Q8H PRN PRN Reason: NAUSEA Last Admin: 12/13/18 23:53 Dose: 4 mg Pantoprazole Sodium (Protonix -) 40 mg PO DAILY [facility] Last Admin: 12/13/18 09:32 Dose: 40 mg - Objective Vital Signs: Vital Signs Temperature 98.7 F 12/14/18 06:00 Pulse Rate 77 12/14/18 06:00 Respiratory Rate 20 12/14/18 06:00 Blood Pressure 98/60 12/14/18 06:00 O2 Sat by Pulse Oximetry (%) 97 12/13/18 21:00 Impression/Plan Impression/Plan: Problem List - Problems (1) Abdominal pain Assessment/Plan: Abnormal workup -WBC19,000, increased from 12,000 5 days ago, elevated alk phosphatase. WBC trending down. add chest xray to complete septic workup. lactic acid normal. CT scan of abdomen with contrast demonstrated lymphadenopathy and osseous lesions concerning for malignancy, blood pressures ranging soft, on Ceftriaxone [address] Hendrickson- Infectious Diseases consulted and following. GI following tumor markers pending. Code(s): R10.9 - UNSPECIFIED ABDOMINAL PAIN (2) Leukocytosis, unspecified Assessment/Plan: improving. on ceftriaxone pending blood/urine cultures. ID following. Code(s): D72.829 - ELEVATED WHITE BLOOD CELL COUNT, UNSPECIFIED Qualifiers: Leukocytosis type: unspecified Qualified Code(s): D72.829 - Elevated white blood cell count, unspecified (3) RUQ abdominal pain Assessment/Plan: improved. GI following. no nausea or vomiting Code(s): R10.11 - RIGHT UPPER QUADRANT PAIN (4) Chills Assessment/Plan: resolved. on antibiotics. Code(s): R68.83 - CHILLS (WITHOUT FEVER) (5) Dizziness Assessment/Plan: monitor Code(s): R42 - DIZZINESS AND GIDDINESS (6) Prophylactic measure Assessment/Plan: fen tolerating po monitor eletrolytes scds/teds/ambulation
[2018-12-14 08:22] LABS: ALBUMIN 2.7 g/dl (3.4-5.0); BILIRUBIN,TOTAL 0.2 mg/dL (0.2-1); CREATININE 0.6 mg/dL (0.55-1.3); MAGNESIUM 1.9 mg/dL (1.8-2.4); POTASSIUM 4.1 mmol/L (3.5-5.1); TOT PROT 6.1 g/dl (6.4-8.2)
[2018-12-14] MEDS ORDERED: cefTRIAXone SODIUM 1 GM VIAL ONE (10:18)
[2018-12-14] MEDS ORDERED: DEXTROSE 5%-WATER - 50 ML IVPB ONE (10:18)
[2018-12-14] MEDS: CEFTRIAXONE 1 GM in DEXTROSE 5%-WATER - 50 ML IVPB SCH (10:24)
[2018-12-14] MEDS: PANTOPRAZOLE 40 MG TABLET (FP) PO SCH (10:24)
[2018-12-14 11:18] VITALS: BMI 29.2
--- NOTE | 2018-12-14 12:44 | PN ---
Progress Note, Physician History of Present Illness: stable doing well no complaints abd soft non tender - Current Medication List Current Medications: Active Medications Acetaminophen (Tylenol -) 650 mg PO Q6H PRN PRN Reason: PAIN LEVEL 6-10 Ceftriaxone Sodium 1 gm/ (Dextrose) 50 mls @ 100 mls/hr IVPB DAILY [facility]; Protocol Last Admin: 12/14/18 10:24 Dose: 100 mls/hr Insulin Aspart (Novolog Vial Sliding Scale -) 1 vial SQ ACHS [facility]; Protocol Last Admin: 12/14/18 11:29 Dose: 4 units Ondansetron HCl (Zofran Injection) 4 mg IVPUSH Q8H PRN PRN Reason: NAUSEA Last Admin: 12/13/18 23:53 Dose: 4 mg Pantoprazole Sodium (Protonix -) 40 mg PO DAILY [facility] Last Admin: 12/14/18 10:24 Dose: 40 mg - Objective Vital Signs: Vital Signs Temperature 98.7 F 12/14/18 06:00 Pulse Rate 77 12/14/18 06:00 Respiratory Rate 20 12/14/18 06:00 Blood Pressure 98/60 12/14/18 06:00 O2 Sat by Pulse Oximetry (%) 97 12/13/18 21:00 Constitutional: Yes: No Distress, Calm Cardiovascular: Yes: Regular Rate and Rhythm Respiratory: Yes: Regular, CTA Bilaterally Gastrointestinal: Yes: Normal Bowel Sounds, Soft Musculoskeletal: Yes: WNL Extremities: Yes: WNL Neurological: Yes: Alert, Oriented Psychiatric: Yes: Alert, Oriented Labs: CBC, BMP 12/14/18 07:10 12/14/18 07:20 Assessment/Plan Problem List - Problems (1) Abdominal pain Code(s): R10.9 - UNSPECIFIED ABDOMINAL PAIN (2) Leukocytosis, unspecified Code(s): D72.829 - ELEVATED WHITE BLOOD CELL COUNT, UNSPECIFIED Qualifiers: Leukocytosis type: unspecified Qualified Code(s): D72.829 - Elevated white blood cell count, unspecified (3) RUQ abdominal pain Code(s): R10.11 - RIGHT UPPER QUADRANT PAIN (4) Chills Code(s): R68.83 - CHILLS (WITHOUT FEVER) (5) Dizziness Code(s): R42 - DIZZINESS AND GIDDINESS (6) Prophylactic measur Code(s): Z29.9 - ENCOUNTER FOR PROPHYLACTIC MEASURES, UNSPECIF plan can change to oral augmentin follow tumor markers vit d levels rest as per the team
--- NOTE | 2018-12-14 12:56 | DS ---
Physical Exam: SUBJECTIVE: Patient seen and examined OBJECTIVE: Vital Signs Period Temp Pulse Resp BP Sys/Hill Pulse Ox Last 24 Hr 98.7 F-99.2 F 77-90 20-20 97-109/60-70 97 PHYSICAL EXAM Constitutional: Yes: Well Nourished, No Distress, Calm Eyes: Yes: WNL HENT: Yes: Atraumatic Neck: Yes: Supple Cardiovascular: Yes: Regular Rate and Rhythm Respiratory: Yes: Regular, CTA Bilaterally ...Rectal Exam: Yes: Hemorrhoids/Internal Genitourinary: Yes: WNL Musculoskeletal: Yes: WNL Extremities: Yes: WNL Edema: No Integumentary: Yes: WNL Neurological: Yes: WNL, Alert, Oriented ...Motor Strength: WNL Psychiatric: Yes: Alert, Oriented Labs: Laboratory Results - last 24 hr 12/13/18 12/13/18 12/13/18 06:55 16:17 21:02 WBC RBC Hgb Hct MCV MCH MCHC RDW Plt Count MPV Absolute Neuts (auto) Neutrophils % Lymphocytes % Monocytes % Eosinophils % Basophils % Nucleated RBC % Sodium Potassium Chloride Carbon Dioxide Anion Gap BUN Creatinine Est GFR (CKD-EPI)AfAm Est GFR (CKD-EPI)NonAf POC Glucometer 254 221 Random Glucose Calcium Magnesium Total Bilirubin AST ALT Alkaline Phosphatase Total Protein Albumin Tumor Marker AFP 1.9 12/14/18 12/14/18 12/14/18 06:28 07:10 07:20 WBC 10.8 H RBC 4.10 Hgb 9.0 L Hct 28.8 L MCV 70.2 L MCH 22.0 L MCHC 31.3 L RDW 16.7 H Plt Count 495 H MPV 8.7 Absolute Neuts (auto) 5.6 Neutrophils % 51.4 D Lymphocytes % 34.2 D Monocytes % 11.0 H Eosinophils % 2.3 D Basophils % 1.1 Nucleated RBC % 0 Sodium 139 Potassium 4.1 Chloride 105 Carbon Dioxide 25 Anion Gap 9 BUN 10.0 Creatinine 0.6 Est GFR (CKD-EPI)AfAm 121.46 Est GFR (CKD-EPI)NonAf 104.80 POC Glucometer 136 Random Glucose 124 H Calcium 9.0 Magnesium 1.9 Total Bilirubin 0.2 AST 41 H ALT 38 Alkaline Phosphatase 428 H Total Protein 6.1 L Albumin 2.7 L Tumor Marker AFP 12/14/18 11:23 WBC RBC Hgb Hct MCV MCH MCHC RDW Plt Count MPV Absolute Neuts (auto) Neutrophils % Lymphocytes % Monocytes % Eosinophils % Basophils % Nucleated RBC % Sodium Potassium Chloride Carbon Dioxide Anion Gap BUN Creatinine Est GFR (CKD-EPI)AfAm Est GFR (CKD-EPI)NonAf POC Glucometer 214 Random Glucose Calcium Magnesium Total Bilirubin AST ALT Alkaline Phosphatase Total Protein Albumin Tumor Marker AFP HOSPITAL COURSE: Date of Admission:12/12/18 Date of Discharge: 12/14/18 Progress Note, Physician History of Present Illness: 53 year old female with history of diabetes mellitus, and a benign tumor with whipple procedure in 2017 and gastric bypass surgery in 2009 who presented from home with symptoms of fever and chills for the past 2 days and then developed right upper quadrant pain. She denied chest pain, shortness of breath, nausea, vomiting , diarrhea or constipation. Upon evaluation in the ER she was found to have a WBC of 19,000 with abnormal differential, alk phosphatase 403, normal LFT 's, amylase and creatinine. CT scan of abdomen was abnormal demonstrating lymphadenopathy with osseous lesions concerning for malignancy. Patient is currently afebrile and blood pressures are ranging soft. She is receiving a normal saline fluid bolus and she will be started on NS at 75cc/hr. She was ordered for ceftriaxone 1gram .She was admitted for further medical management with GI and ID consult. - Current Medication List Current Medications: Active Medications Acetaminophen (Tylenol -) 650 mg PO Q6H PRN PRN Reason: PAIN LEVEL 6-10 Ceftriaxone Sodium 1 gm/ (Dextrose) 50 mls @ 100 mls/hr IVPB DAILY [facility]INO; Protocol Last Admin: 12/13/18 09:32 Dose: 100 mls/hr Insulin Aspart (Novolog Vial Sliding Scale -) 1 vial SQ ACHS [facility]; Protocol Last Admin: 12/14/18 06:37 Dose: Not Given Ondansetron HCl (Zofran Injection) 4 mg IVPUSH Q8H PRN PRN Reason: NAUSEA Last Admin: 12/13/18 23:53 Dose: 4 mg Pantoprazole Sodium (Protonix -) 40 mg PO DAILY JUSTINO Last Admin: 12/13/18 09:32 Dose: 40 mg - Objective Vital Signs: Vital Signs Temperature 98.7 F 12/14/18 06:00 Pulse Rate 77 12/14/18 06:00 Respiratory Rate 20 12/14/18 06:00 Blood Pressure 98/60 12/14/18 06:00 O2 Sat by Pulse Oximetry (%) 97 12/13/18 21:00 Impression/Plan Impression/Plan: Problem List - Problems (1) Abdominal pain Assessment/Plan: Abnormal workup -WBC19,000, increased from 12,000 5 days ago, elevated alk phosphatase. WBC trending down now [address] scan of abdomen with contrast demonstrated lymphadenopathy and osseous lesions and malignancy was ruled out on Ceftriaxone 1 gm daily x 2 days and then changed to Augmentin for [address] Hendrickson- Infectious Diseases followed when in patient. Tumor markers pending and will notify if any markers Code(s): R10.9 - UNSPECIFIED ABDOMINAL PAIN (2) Leukocytosis, resolving Assessment/Plan: Code(s): D72.829 - ELEVATED WHITE BLOOD CELL COUNT, UNSPECIFIED Qualifiers: Leukocytosis type: unspecified Qualified Code(s): D72.829 - Elevated white blood cell count, unspecified (3) RUQ abdominal pain Assessment/Plan: improved. no nausea or vomiting Recommended to have a CT of abdomen in 3 months Code(s): R10.11 - RIGHT UPPER QUADRANT PAIN (4) Chills Assessment/Plan: resolved. on antibiotics. Code(s): R68.83 - CHILLS (WITHOUT FEVER) (5) Dizziness Assessment/Plan: resolved Code(s): R42 - DIZZINESS AND GIDDINESS (6) Prophylactic measure Assessment/Plan: fen tolerating po monitor eletrolytes scds/teds/ambulation Discharge to home with follow up with PCP Minutes to complete discharge: 30 Discharge Summary Reason For Visit: CONCERN ABOUT CANCER WITHOUT DIAGNOSIS Current Active Problems Abdominal pain (Acute) Concern about cancer without diagnosis (Acute) Leukocytosis, unspecified (Acute) Neoplasm of uncertain behavior of liver (Acute) Prophylactic measure (Acute) RUQ abdominal pain (Acute) Hospital Course: Progress Note, Physician History of Present Illness: 53 year old female with history of diabetes mellitus, and a benign tumor with whipple procedure in 2017 and gastric bypass surgery in 2010 who presented from home with symptoms of fever and chills for the past 2 days and then developed right upper quadrant pain. She denied chest pain, shortness of breath, nausea, vomiting , diarrhea or constipation. Upon evaluation in the ER she was found to have a WBC of 19,000 with abnormal differential, alk phosphatase 403, normal LFT 's, amylase and creatinine. CT scan of abdomen was abnormal demonstrating lymphadenopathy with osseous lesions concerning for malignancy. Patient is currently afebrile and blood pressures are ranging soft. She is receiving a normal saline fluid bolus and she will be started on NS at 75cc/hr. She was ordered for ceftriaxone 1gram .She was admitted for further medical management with GI and ID consult. - Current Medication List Current Medications: Active Medications Acetaminophen (Tylenol -) 650 mg PO Q6H PRN PRN Reason: PAIN LEVEL 6-10 Ceftriaxone Sodium 1 gm/ (Dextrose) 50 mls @ 100 mls/hr IVPB DAILY JUSTINO; Protocol Last Admin: 12/13/18 09:32 Dose: 100 mls/hr Insulin Aspart (Novolog Vial Sliding Scale -) 1 vial SQ ACHS [facility]; Protocol Last Admin: 12/14/18 06:37 Dose: Not Given Ondansetron HCl (Zofran Injection) 4 mg IVPUSH Q8H PRN PRN Reason: NAUSEA Last Admin: 12/13/18 23:53 Dose: 4 mg Pantoprazole Sodium (Protonix -) 40 mg PO DAILY JUSTINO Last Admin: 12/13/18 09:32 Dose: 40 mg - Objective Vital Signs: Vital Signs Temperature 98.7 F 12/14/18 06:00 Pulse Rate 77 12/14/18 06:00 Respiratory Rate 20 12/14/18 06:00 Blood Pressure 98/60 12/14/18 06:00 O2 Sat by Pulse Oximetry (%) 97 12/13/18 21:00 Impression/Plan Impression/Plan: Problem List - Problems (1) Abdominal pain Assessment/Plan: Abnormal workup -WBC19,000, increased from 12,000 5 days ago, elevated alk phosphatase. WBC trending down now [address] scan of abdomen with contrast demonstrated lymphadenopathy and osseous lesions and malignancy was ruled out on Ceftriaxone 1 gm daily x 2 days and then changed to Augmentin for [address] Hendrickson- Infectious Diseases followed when in patient. Tumor markers pending and will notify if any markers Code(s): R10.9 - UNSPECIFIED ABDOMINAL PAIN (2) Leukocytosis, resolving Assessment/Plan: Code(s): D72.829 - ELEVATED WHITE BLOOD CELL COUNT, UNSPECIFIED Qualifiers: Leukocytosis type: unspecified Qualified Code(s): D72.829 - Elevated white blood cell count, unspecified (3) RUQ abdominal pain Assessment/Plan: improved. no nausea or vomiting Recommended to have a CT of abdomen in 3 months Code(s): R10.11 - RIGHT UPPER QUADRANT PAIN (4) Chills Assessment/Plan: resolved. on antibiotics. Code(s): R68.83 - CHILLS (WITHOUT FEVER) (5) Dizziness Assessment/Plan: resolved Code(s): R42 - DIZZINESS AND GIDDINESS (6) Prophylactic measure Assessment/Plan: fen tolerating po monitor eletrolytes scds/teds/ambulation Discharge to home with follow up with PCP Condition: Improved - Instructions Diet, Activity, Other Instructions: You were admitted for abdominal pain. A CT scan of abdomen with contrast demonstrated lymphadenopathy and osseous lesions concerning for malignancy-- this was ruled out. When you see you your primary care doctor it is recommended that you have a repeat CT of your abdomen in 3 months. Your wbc was high and you were started on an IV antibiotic. It was changed to oral today and you will remain on that for an additional [address] your bones in your hips/pelvis appeared "soft". You will start Vitamin D and continue the magnesium that your primary provider prescribed. Take those until otherwise notified. You should consume a high fiber diet. If you have an fevers, return of abdominal pain call your primary provider or return to the ED. - Home Medications Comprehensive Discharge Medication List: Ambulatory Orders Omeprazole Magnesium [Prilosec (OTC)] 40 mg PO DAILY 03/01/15 Naproxen/Esomeprazole Mag [Vimovo Dr 375-20 mg Tablet] 0 tab PO DAILY PRN metFORMIN HCL [Metformin HCl] 500 mg PO BID 12/12/18 This patient is new to me today: Yes Date on this admission: 12/14/18 Emergency Visit: Yes ED Registration Date: 12/12/18 Care time: The patient presented to the Emergency Department on the above date and was hospitalized for further evaluation of their emergent condition. Critical Care patient: No - Discharge Referral Referred to [facility] Med P.C.: No
[2018-12-14 12:58] VITALS: TEMP 98.9
[2018-12-14 14:59] VITALS: BP 106/73; PULSE 84
[2018-12-14] MEDS ORDERED: AMOX TR/POT CLAV 875MG/125MG TABLETS (FP) PO SCH (17:30)
[2018-12-15 04:07] LABS: CARCINOEMBRYONIC ANTIGEN 0.7 ng/mL (0.0-4.7)
[2018-12-15] MEDS ORDERED: CHOLECALCIFEROL (VIT D3) 400 UNIT (10 MCG) TABLET PO SCH (10:00)
[2018-12-16 12:07] LABS: HEP B CORE AB, TOT Negative (Negative)
== END 2018-12-14 13:56 | disposition home or self-care (01) | DRG 392 ==
LOC: JER 13:00 → JERBED 19:33 → J5S 21:37
PROVIDERS: ADMIT Internal Medicine; ATTEND Nurse Practitioner Acute Care
DX: R10.11 Right upper quadrant pain (principal); D72.829 Elevated white blood cell count, unspecified; E11.9 Type 2 diabetes mellitus without complications; R42 Dizziness and giddiness; D37.6 Neoplasm of uncertain behavior of liver, gallbladder and bile ducts
CPT/HCPCS: 36415; 71045-TC-FY; 74177-TC; 80053; 81003; 82105; 82378; 82962; 83605; 83690; 83735; 85025; 86301; 86704; 86706; 86707; 86708; 86709; 86803; 87040; 87086; 87340; 99283-25; J0131; J7030

== ENCOUNTER 2019-01-28 08:04 | Inpatient (IN) | payer OTHER ==
[2019-01-28] MEDS ORDERED: VECURONIUM BROMIDE 10 MG VIAL ONE (08:32)
[2019-01-28] MEDS ORDERED: LIDOCAINE HCL/PF 2% SDV 5ML VIAL ONE ×2 (08:32→11:04)
[2019-01-28] MEDS ORDERED: SODIUM CHLORIDE 0.9% P/F 10 ML VIAL IJ ONE (08:32)
[2019-01-28] MEDS ORDERED: DEXAMETHASONE SOD PHOSPHATE 4 MG/1 ML VIAL ONE (08:32)
[2019-01-28] MEDS ORDERED: ceFAZolin SODIUM 1 GM VIAL ONE ×2 (08:32→17:22)
[2019-01-28 08:44] VITALS: BMI 29.2
[2019-01-28] MEDS ORDERED: KETAMINE HCL 200 MG/20 ML VIAL ONE (09:03)
[2019-01-28] MEDS ORDERED: MIDAZOLAM HCL 2 MG/2 ML SINGLE DOSE VIAL ONE ×2 (09:03)
[2019-01-28] MEDS ORDERED: DEXAMETHASONE SOD PHOSPHATE/PF 10 MG/ML SDV ONE (09:07)
[2019-01-28] MEDS ORDERED: BUPIVACAINE HCL/PF 0.5% (5 MG/ML) 30 ML VIAL IJ ONE (09:07)
[2019-01-28] MEDS ORDERED: SCOPOLAMINE HYDROBROMIDE 1 PATCH PATCH.TD72 ONE (09:22)
--- NOTE | 2019-01-28 09:25 | HP ---
Admitting History and Physical - Primary Care Physician PCP: Cornell Acevedo - Admission Chief Complaint: incisional hernia History of Present Illness: 53 y.o. female with history of sleeve gastrectomy and Whipple procedure in 2017 , subsequently developed a supraumbilical bulge associated with pain on exertion. History Source: Patient Limitations to Obtaining History: No Limitations - Past Medical History Gastrointestinal: Yes: Peptic Ulcer Disease, Other (pancreatic neuroendocrine tumor, sleeve gastrectomy for MO) Hepatobiliary: Yes: Cirrhosis (biliary cirrhosis?) ...LMP: 01/02/15 ...LMP Comment: postmenopausal ...: No Heme/Onc: Yes: Anemia (baseline Hb 9) Rheumatology: Yes: Other (+ SERGEY) Dermatology: Yes: Other (vitiligo) - Past Surgical History Past Surgical History: Yes: Bariatric Surgery Additional Past Surgical History: Whipple procedure for pancreatic neuroendocrine tumor - Smoking History Smoking history: Never smoked Have you smoked in the past 12 months: No Aproximately how many cigarettes per day: 0 - Alcohol/Substance Use Hx Alcohol Use: No History of Substance Use: reports: None - Social History 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 History of Recent Travel: No Home Medications - Allergies Allergies/Adverse Reactions: Allergies Allergy/AdvReac Type Severity Reaction Status Date / Time ibuprofen [From Advil] AdvReac Verified 01/26/19 16:37 - Home Medications Home Medications: Ambulatory Orders Omeprazole Magnesium [Prilosec (OTC)] 40 mg PO PRN PRN 03/01/15 metFORMIN HCL [Metformin HCl] 500 mg PO BID 12/12/18 Magnesium 200 mg PO PRN PRN 01/26/19 Ondansetron HCl [Zofran] 4 mg PO PRN PRN 01/26/19 Review of Systems - Review of Systems Constitutional: reports: No Symptoms Eyes: reports: No Symptoms HENT: reports: No Symptoms Neck: reports: No Symptoms Cardiovascular: reports: No Symptoms Respiratory: reports: No Symptoms Gastrointestinal: reports: Abdominal Pain, Bloating Genitourinary: reports: No Symptoms Breasts: reports: No Symptoms Reported Physical Examination Vital Signs: Vital Signs Temperature 97.7 F 01/28/19 08:44 Pulse Rate 76 01/28/19 08:44 Respiratory Rate 20 01/28/19 08:44 Blood Pressure 115/80 01/28/19 08:44 O2 Sat by Pulse Oximetry (%) 100 01/28/19 08:44 Constitutional: Yes: Well Nourished, No Distress, Calm HENT: Yes: Normocephalic Neck: Yes: Supple Cardiovascular: Yes: Regular Rate and Rhythm Respiratory: Yes: CTA Bilaterally Gastrointestinal: Yes: Soft, Abdomen, Obese, Hernia (supraumbilical area) Neurological: Yes: Alert, Oriented ...Motor Strength: WNL Psychiatric: Yes: WNL Imaging - Results MRI: Report Reviewed, Image Reviewed Problem List - Problems (1) Incisional hernia Assessment/Plan: open incisional hernia repair with Phasix mesh and possible component separation Code(s): K43.2 - INCISIONAL HERNIA WITHOUT OBSTRUCTION OR GANGRENE
[2019-01-28] MEDS ORDERED: ceFAZolin SODIUM 1 GM VIAL IVPB ONE (09:49)
[2019-01-28] MEDS ORDERED: PROPOFOL 20 ML ONE ×2 (09:54→11:18)
[2019-01-28] MEDS ORDERED: CEFOXITIN SODIUM 2 GM IVPB ONE (09:59)
[2019-01-28] MEDS ORDERED: cefOXitin SODIUM 1 GM VIAL (RESTRICTED TO ID) IVPB ONE (10:04)
[2019-01-28] MEDS ORDERED: GLYCOPYRROLATE 0.2 MG/1 ML VIAL ONE (12:16)
[2019-01-28] MEDS ORDERED: NEOSTIGMINE METHYLSULFATE 0.5 MG/ML - 10 ML MDV ONE (12:16)
[2019-01-28] MEDS ORDERED: LIDOCAINE HCL 2% 100 MG/5 ML DISP.SYRIN ONE (12:20)
[2019-01-28] MEDS ORDERED: ONDANSETRON 4 MG/2 ML VIAL IVPUSH PRN (12:58)
[2019-01-28] MEDS ORDERED: LACTATED RINGERS SOLUTION 1,000 ML IV SCH (13:00)
--- NOTE | 2019-01-28 13:04 | OP ---
Operative Note - Note: Operative Date: 01/28/19 Pre-Operative Diagnosis: Incisional hernia Operation: Open incisional hernia repair with Phasix mesh with bilateral component separation Findings: 12 x 10 cm fascial defect at epigastric region with partially incarcerated small bowel Implants: 12 x 10 inch Phasix mesh Post-Operative Diagnosis: Same as Pre-op Surgeon: Darwin Schumacher Supervisor Hand Workers: Izzy Bajwa Anesthesia: General Estimated Blood Loss (mls): 100 Drains & Tubes with Location: subcu Kirill drains x 2 Operative Report Dictated: Yes
[2019-01-28] MEDS ORDERED: DEXTROSE 5%-0.45% SALINE 1,000 ML IV SCH (13:15)
--- NOTE | 2019-01-28 13:24 | SURG ---
Surgery Stone Setter Apprentice Note Stone Setter Apprentice: Izzy Bajwa PA-C Date of Service: 01/28/19 Diagnosis: Incisional hernia Procedure: Open incisional hernia repair with Phasix mesh with bilateral component separation I was present for the entirety of the operative procedure. For further detail, please refer to operative report. Visit type - Case Type Case Type: Scheduled - Emergency Emergency Visit: No - New patient This patient is new to me today: Yes Date on this admission: 01/28/19
[2019-01-28] MEDS ORDERED: HYDROmorphone *PCA* 10MG/50ML DISP.SYRIN ONE (13:53)
[2019-01-28] MEDS: HYDROmorphone *PCA* 10MG/50ML DISP.SYRIN PCA SCH ×2 (14:15→14:30)
--- NOTE | 2019-01-28 14:30 | OP ---
DATE OF OPERATION: 01/28/2019 PROCEDURE: Open incisional hernia repair with Phasix mesh and bilateral anterior component separation. PREOPERATIVE DIAGNOSIS: Upper midline incisional hernia. POSTOPERATIVE DIAGNOSIS: Upper midline incisional hernia. SURGEON: Darwin Schumacher MD MARITIME ENGINEER: UVALDO Auguste ANESTHESIA: General endotracheal. FINDINGS AND PROCEDURE: This is a 53-year-old female who is status post Whipple procedure in 2017 for a neuroendocrine bronchitic mass and subsequently developed a large upper midline incisional hernia. On physical exam, patient has a 10 x 12-cm upper midline bulge from under the upper midline scar, which was partially reducible. A CT scan of the abdomen as well as an MRI showed a large incisional hernia containing loops of small bowel. Patient has complaints of pain on exertion and bloating sensation after eating, so patient was advised elective repair of the hernia, and consent was obtained after discussing the risks, benefits, and alternatives of the procedure. PROCEDURE IN DETAIL: Patient was brought to the operating room and placed in supine position. General endotracheal anesthesia was administered. A Lange catheter was inserted. The abdomen was prepped and draped in the usual sterile fashion. An initial 10-cm upper midline incision was made using scalpel blade No. 10, which was later lengthened to about 12 cm to facilitate dissection. Dissection was carried down to the subcutaneous tissue until the hernia sac was encountered. Further careful dissection was done around the hernia sac until the fascia was identified. The skin and subcutaneous tissue were then undermined just above the fascia initially superiorly toward the subxiphoid process and inferiorly towards about 3 cm below the umbilicus. The hernia sac was opened and was noted to contain bowel loops, which were noted to be free with no adhesions. It was then decided to do bilateral anterior component separation by initially dissecting the deep subcutaneous tissues just above the fascia toward the flank until the external oblique muscle was encountered. By visualization and palpation, the lateral edge of the rectus abdominis muscle was identified, and an incision was made 2 cm lateral to the edge of the rectus muscle, and the external oblique muscle and aponeurosis were incised using Bovie cautery. This incision was carried superiorly toward the rib cage toward the last 2 anterior ribs, and the component separation was carried inferiorly toward the inguinal canal. About 8 cm of mobilization was achieved on the left side. However, due to the large hernia, it was still felt that the primary closure of the hernia defect was still under significant tension. It was decided upon to perform a component separation on the right side again by dissecting or undermining the deep subcutaneous tissue just above the abdominal wall muscles toward the flank. The lateral edge of the rectus abdominis muscle was identified, and an incision was made 2 cm lateral to that to incise the external oblique muscle and the aponeurosis. The separation was also carried superiorly toward the last 2 anterior ribs and inferiorly toward the inguinal canal. Another 8 cm of mobilization was also achieved. The hernia defect, which was about 12 x 10 cm was then primarily closed. Prior to that, the hernia sac was closed with a continuous Vicryl 2-0 suture. The hernia defect was then primarily closed by applying [id number] Prolene No. 1 sutures to the fascial edges. After this was achieved, a 10 x 12-inch Phasix mesh, which was cut down to 10 x 10 inches was then deployed as an onlay mesh reinforcement. The mesh was tacked to the abdominal wall by interrupted Vicryl 2-0 sutures. After the deployment was deemed satisfactory, 2 Jose-Cano drains were inserted via 2 separate stab wounds exiting at the flank just above the anterior superior iliac spine for postoperative drainage. The subcutaneous layer was closed with Vicryl 2-0 sutures, and the skin was closed with ace. The Jose-Cano drains were then connected to bulb suction. The wound was covered with sterile dressing and then abdominal binder was applied. The patient was successfully extubated and transferred to the post anesthesia care unit in satisfactory condition. Estimated blood loss was about 100 mL. Wound class, clean. The patient received 2 g of Ancef and 2 g of Cefoxitin prior to the start of the procedure. Armando [id number]
[2019-01-28] MEDS ORDERED: ACETAMINOPHEN 1000 MG/100 ML VIAL (NON FORMULARY) IVPB ONE (14:50)
[2019-01-28] MEDS ORDERED: ONDANSETRON 4 MG/2 ML VIAL IVPUSH ONE (15:20)
[2019-01-28] MEDS ORDERED: ONDANSETRON 4 MG/2 ML VIAL ONE (15:22)
[2019-01-28] MEDS: CEFAZOLIN 1 GM in DEXTROSE 5%-WATER - 50 ML IVPB SCH (17:32)
[2019-01-28] MEDS: ONDANSETRON 4 MG/2 ML VIAL IVPUSH PRN (20:20)
[2019-01-28] MEDS: SODIUM CHLORIDE 1,000 ML IV SCH (20:21)
[2019-01-28] MEDS: ACETAMINOPHEN 1000 MG/100 ML VIAL (NON FORMULARY) IVPB SCH (20:21)
--- NOTE | 2019-01-28 20:21 | PN ---
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 [employer] WORKER JUSTINO; Protocol Stop: 02/04/19 12:58 Last Admin: 01/28/19 14:30 Dose: 0.3 mg Cefazolin Sodium 1 gm/ (Dextrose) 50 mls @ 100 mls/hr IVPB Q8H-IV JUSTINO Last Admin: 01/28/19 17:32 Dose: 0 mls Sodium Chloride (Normal Saline -) 1,000 mls @ 75 mls/hr IV ASDIR JUSTINO Insulin Aspart (Novolog Vial Sliding Scale -) 1 vial SQ ACHS [facility]; Protocol Metformin HCl (Glucophage -) 500 mg PO BIDAC JUSTINO Ondansetron HCl (Zofran Injection) 4 mg IVPUSH Q6H PRN PRN Reason: NAUSEA AND/OR VOMITING Pantoprazole Sodium (Protonix -) 40 mg PO DAILY PRN PRN Reason: DYSPEPSIA - Objective Vital Signs: Vital Signs Temperature 98.6 F 01/28/19 19:15 Pulse Rate 74 01/28/19 19:15 Respiratory Rate 16 01/28/19 19:15 Blood Pressure 108/67 01/28/19 19:15 O2 Sat by Pulse Oximetry (%) 96 01/28/19 19:15
[2019-01-28] MEDS: HEPARIN NA (PORCINE) 5,000 UNITS/ML 1ML VIAL SQ SCH (22:25)
[2019-01-28] MEDS: INSULIN SLIDING SCALE (NOVOLOG) 1 VIAL SQ SCH (22:25)
[2019-01-29] MEDS: ACETAMINOPHEN 1000 MG/100 ML VIAL (NON FORMULARY) IVPB SCH (01:06)
[2019-01-29] MEDS ORDERED: ceFAZolin SODIUM 1 GM VIAL ONE ×3 (02:42→16:50)
[2019-01-29] MEDS ORDERED: DEXTROSE 5%-WATER - 50 ML IVPB ONE ×4 (02:42→18:15)
[2019-01-29] MEDS: CEFAZOLIN 1 GM in DEXTROSE 5%-WATER - 50 ML IVPB SCH ×3 (02:55→17:07)
[2019-01-29] MEDS: ONDANSETRON 4 MG/2 ML VIAL IVPUSH PRN ×3 (03:31→20:52)
[2019-01-29] MEDS: metFORMIN HCL 500 MG TABLET (FP) PO SCH ×2 (06:20→17:07)
[2019-01-29] MEDS: INSULIN SLIDING SCALE (NOVOLOG) 1 VIAL SQ SCH ×4 (06:20→22:13)
[2019-01-29] MEDS: HEPARIN NA (PORCINE) 5,000 UNITS/ML 1ML VIAL SQ SCH ×3 (09:01→22:41)
[2019-01-29 10:49] LABS: BASO % 0.7 % (0-2.0); EOS % 0.1 % (0-4.5); HEMATOCRIT 28.6 % (32.4-45.2); HEMOGLOBIN 8.6 GM/dL (10.7-15.3); LYMPH % 25.7 % (8-40); MCH 21.1 pg (25.7-33.7); MCHC 30.2 g/dl (32.0-36.0); MEAN CELL VOLUME 70.1 fl (80-96); MEAN PLT VOLUME 8.9 fl (7.5-11.1); NEUT % 67.5 % (42.8-82.8); PLATELET COUNT 445 K/MM3 (134-434); RBC 4.08 M/mm3 (3.60-5.2); RDW 18.1 % (11.6-15.6); WHITE BLOOD COUNT 17.1 K/mm3 (4.0-10.0)
[2019-01-29 11:18] LABS: BLOOD UREA NITROGEN 15.4 mg/dL (7-18); CALCIUM 8.6 mg/dL (8.5-10.1); CREATININE 0.8 mg/dL (0.55-1.3); POTASSIUM 4.4 mmol/L (3.5-5.1)
[2019-01-29] MEDS: SODIUM CHLORIDE 1,000 ML IV SCH (12:51)
[2019-01-29 15:54] LABS: ANISOCYTOSIS 2+; MACROCYTOSIS 0; OVALOCYTE 1+; PLATELET ESTIMATE NORMAL; TARGET CELLS 1+
--- NOTE | 2019-01-29 17:17 | PN ---
Progress Note, Physician - Current Medication List Current Medications: Active Medications Fentanyl (Sublimaze Injection -) 50 mcg IVPUSH [id number] PRN PRN Reason: PAIN-PACU ORDER X 4 DOSES ONLY Heparin Sodium (Porcine) (Heparin -) 5,000 unit SQ BID JUSTINO Last Admin: 01/29/19 09:01 Dose: 5,000 unit Hydromorphone HCl (Hydromorphone 10 Mg/50 Ml-Ns) 10 mg AOC DIRECTOR COMBAT PLANS OFFICER AOC DIRECTOR COMBAT PLANS OFFICER [facility]; Protocol Stop: 02/04/19 12:58 Last Admin: 01/28/19 14:30 Dose: 0.3 mg Cefazolin Sodium 1 gm/ (Dextrose) 50 mls @ 100 mls/hr IVPB Q8H-IV JUSTINO Last Admin: 01/29/19 17:07 Dose: 100 mls/hr Sodium Chloride (Normal Saline -) 1,000 mls @ 75 mls/hr IV ASDIR JUSTINO Last Admin: 01/29/19 12:51 Dose: 75 mls/hr Piperacillin Sod/Tazobactam (Sod 3.375 gm/ Dextrose) 50 mls @ 100 mls/hr IVPB Q8H-IV [facility]; Protocol Insulin Aspart (Novolog Vial Sliding Scale -) 1 vial SQ ACHS [facility]; Protocol Last Admin: 01/29/19 12:58 Dose: Not Given Metformin HCl (Glucophage -) 500 mg PO BIDAC JUSTINO Last Admin: 01/29/19 17:07 Dose: 500 mg Ondansetron HCl (Zofran Injection) 4 mg IVPUSH Q6H PRN PRN Reason: NAUSEA AND/OR VOMITING Last Admin: 01/29/19 12:50 Dose: 4 mg Pantoprazole Sodium (Protonix -) 40 mg PO DAILY PRN PRN Reason: DYSPEPSIA Vancomycin HCl (Vancomycin (Pre-Docked)) 1,000 mg IVPB BID [facility]; Protocol Vancomycin HCl (Vancomycin (Pre-Docked)) 1,000 mg IVPB BID [facility]; Protocol Stop: 01/30/19 10:01 - Objective Vital Signs: Vital Signs Temperature 97.8 F 01/29/19 05:24 Pulse Rate 60 01/29/19 05:24 Respiratory Rate 20 01/29/19 08:39 Blood Pressure 95/60 01/29/19 05:24 O2 Sat by Pulse Oximetry (%) 96 10/12/19 08:39 Labs: CBC, BMP 10/12/19 10:20 01/29/19 10:20 Problem List - Problems (1) Incisional hernia Code(s): K43.2 - INCISIONAL HERNIA WITHOUT OBSTRUCTION OR GANGRENE
[2019-01-29] MEDS ORDERED: PIPERACILLIN/TAZOB 3.375 GM 3.375 GM in DEXTROSE 5%-WATER - 50 ML IVPB SCH (18:00)
[2019-01-29] MEDS ORDERED: PIPERACILLIN/TAZOBACTAM 3.375 GM VIAL IVPB ONE (18:15)
[2019-01-29] MEDS: ACETAMINOPHEN 1000 MG/100 ML VIAL (NON FORMULARY) IVPB PRN (18:45)
[2019-01-29] MEDS: PIPERACILLIN/TAZOB 3.375 GM 3.375 GM in DEXTROSE 5%-WATER - 50 ML IVPB SCH (18:46)
[2019-01-29] MEDS ORDERED: VANCOMYCIN 1 GM in D5W (PRE-DOCKED) 1,000 MG/250 ML IVPB SCH (22:00)
[2019-01-29] MEDS: PANTOPRAZOLE 40 MG TABLET (FP) PO PRN (22:11)
[2019-01-29] MEDS: VANCOMYCIN 1 GM in D5W (PRE-DOCKED) 1,000 MG/250 ML IVPB SCH (22:12)
--- NOTE | 2019-01-29 23:03 | PN ---
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; Protocol Stop: 02/04/19 12:58 Last Admin: 01/28/19 14:30 Dose: 0.3 mg Cefazolin Sodium 1 gm/ (Dextrose) 50 mls @ 100 mls/hr IVPB Q8H-IV JUSTINO Last Admin: 01/29/19 17:07 Dose: 100 mls/hr Sodium Chloride (Normal Saline -) 1,000 mls @ 75 mls/hr IV ASDIR JUSTINO Last Admin: 01/29/19 12:51 Dose: 75 mls/hr Piperacillin Sod/Tazobactam (Sod 3.375 gm/ Dextrose) 50 mls @ 100 mls/hr IVPB Q8H-IV JUSTINO; Protocol Piperacillin Sod/Tazobactam (Sod 3.375 gm/ Dextrose) 50 mls @ 100 mls/hr IVPB Q8H-IV JUSTINO; Protocol Stop: 01/30/19 10:29 Last Admin: 01/29/19 18:46 Dose: 100 mls/hr Insulin Aspart (Novolog Vial Sliding Scale -) 1 vial SQ ACHS [facility]INO; Protocol Last Admin: 01/29/19 22:13 Dose: Not Given Metformin HCl (Glucophage -) 500 mg PO BIDAC JUSTINO Last Admin: 01/29/19 17:07 Dose: 500 mg Ondansetron HCl (Zofran Injection) 4 mg IVPUSH Q6H PRN PRN Reason: NAUSEA AND/OR VOMITING Last Admin: 01/29/19 20:52 Dose: 4 mg Pantoprazole Sodium (Protonix -) 40 mg PO DAILY PRN PRN Reason: DYSPEPSIA Last Admin: 01/29/19 22:11 Dose: 40 mg Vancomycin HCl (Vancomycin (Pre-Docked)) 1,000 mg IVPB BID [facility]; Protocol Vancomycin HCl (Vancomycin (Pre-Docked)) 1,000 mg IVPB BID [facility]; Protocol Stop: 01/30/19 10:01 Last Admin: 01/29/19 22:12 Dose: 1,000 mg - Objective Vital Signs: Vital Signs Temperature 97.8 F 01/29/19 05:24 Pulse Rate 60 01/29/19 05:24 Respiratory Rate 20 01/29/19 08:39 Blood Pressure 95/60 01/29/19 05:24 O2 Sat by Pulse Oximetry (%) 96 01/29/19 08:39 Neck: Yes: WNL, Supple Cardiovascular: Yes: WNL, Regular Rate and Rhythm Respiratory: Yes: WNL, Regular, CTA Bilaterally Gastrointestinal: Yes: Other (Surgical tenderness B/L drainage tubes w/ serous drainage) Edema: No Labs: CBC, BMP 01/29/19 10:20 01/29/19 10:20 Problem List - Problems (1) Hernia Assessment/Plan: S/p hernia repair Pt tolerating diet Cont morphine for pain Cont IV zosyn As per surgery WBC slightly elevated today Cont IV zosyn/vanco Check WBC in am ID consult Code(s): K46.9 - UNSPECIFIED ABDOMINAL HERNIA WITHOUT OBSTRUCTION OR GANGRENE (2) Diabetes Assessment/Plan: Cont sliding scaale w/ coverage Cont metformin Code(s): E11.9 - TYPE 2 DIABETES MELLITUS WITHOUT COMPLICATIONS (3) H/O pancreatic cancer Code(s): Z85.07 - PERSONAL HISTORY OF MALIGNANT NEOPLASM OF PANCREAS
[2019-01-30] MEDS: ACETAMINOPHEN 1000 MG/100 ML VIAL (NON FORMULARY) IVPB PRN ×4 (00:34→22:09)
[2019-01-30] MEDS ORDERED: DEXTROSE 5%-WATER - 50 ML IVPB ONE ×5 (02:34→17:06)
[2019-01-30] MEDS ORDERED: ceFAZolin SODIUM 1 GM VIAL ONE ×3 (02:34→17:06)
[2019-01-30] MEDS ORDERED: PIPERACILLIN/TAZOBACTAM 3.375 GM VIAL IVPB ONE ×2 (02:34→08:26)
[2019-01-30] MEDS: PIPERACILLIN/TAZOB 3.375 GM 3.375 GM in DEXTROSE 5%-WATER - 50 ML IVPB SCH ×2 (02:38→09:11)
[2019-01-30] MEDS: CEFAZOLIN 1 GM in DEXTROSE 5%-WATER - 50 ML IVPB SCH ×3 (02:39→17:10)
[2019-01-30] MEDS: SODIUM CHLORIDE 1,000 ML IV SCH ×2 (03:35→17:21)
[2019-01-30] MEDS: metFORMIN HCL 500 MG TABLET (FP) PO SCH ×3 (06:49→17:10)
[2019-01-30] MEDS: INSULIN SLIDING SCALE (NOVOLOG) 1 VIAL SQ SCH ×4 (06:50→22:19)
[2019-01-30 08:00] LABS: BASO % 1.3 % (0-2.0); EOS % 1.8 % (0-4.5); HEMOGLOBIN 8.3 GM/dL (10.7-15.3); LYMPH % 50.9 % (8-40); MCH 21.6 pg (25.7-33.7); MCHC 30.7 g/dl (32.0-36.0); MEAN CELL VOLUME 70.1 fl (80-96); PLATELET COUNT 472 K/MM3 (134-434); RBC 3.85 M/mm3 (3.60-5.2); RDW 17.9 % (11.6-15.6); WHITE BLOOD COUNT 14.3 K/mm3 (4.0-10.0)
[2019-01-30 08:09] LABS: ALBUMIN 2.8 g/dl (3.4-5.0); BILIRUBIN,TOTAL 0.3 mg/dL (0.2-1); BLOOD UREA NITROGEN 12.6 mg/dL (7-18); CALCIUM 8.8 mg/dL (8.5-10.1); CREATININE 0.8 mg/dL (0.55-1.3); POTASSIUM 4.3 mmol/L (3.5-5.1); TOT PROT 6.2 g/dl (6.4-8.2)
[2019-01-30] MEDS: HEPARIN NA (PORCINE) 5,000 UNITS/ML 1ML VIAL SQ SCH ×2 (09:10→21:58)
[2019-01-30] MEDS: VANCOMYCIN 1 GM in D5W (PRE-DOCKED) 1,000 MG/250 ML IVPB SCH (09:11)
--- NOTE | 2019-01-30 16:19 | CON.ID ---
Consult - History of Present Illness History of Present Illness: Asked by Dr. Mcfarlane to evaluate this patient for leukocytosis. She is a 53 y.o. female with PMH of pancreatic neuroendocrine tumor s/p Whipple in 2017, s/p gastric sleeve, PUD, DM, anemia who underwent hernia repair on 01/28/19. She was noted to have wbc elevation 17K the following day. She has been afebrile/ without chills. Denies SOB/cough, n/v/d, urinary f/u/d, rash, headache or any other specific complaints. Abdominal pain is well controlled. Was has been on Cefazolin and today the wbc count has decreased to 14K. Currently she is stable. - History Source History Provided By: Patient, Medical Record Limitations to Obtaining History: No Limitations - Past Medical History Gastrointestinal: Yes: Peptic Ulcer Disease, Other (pancreatic neuroendocrine tumor, sleeve gastrectomy for MO) Hepatobiliary: Yes: Cirrhosis (biliary cirrhosis?) ...LMP: 01/02/15 ...LMP Comment: postmenopausal ...: No Rheumatology: Yes: Other (+ SERGEY) Dermatology: Yes: Other (vitiligo) Additional Medical History: s/p gastric sleve - Past Surgical History Past Surgical History: Yes: Bariatric Surgery - Alcohol/Substance Use Hx Alcohol Use: No History of Substance Use: reports: None - Smoking History Smoking history: Never smoked Have you smoked in the past 12 months: No Aproximately how many cigarettes per day: 0 - Social History Usual Living Arrangement: With Spouse 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 History of Recent Travel: No Home Medications - Allergies Allergies/Adverse Reactions: Allergies Allergy/AdvReac Type Severity Reaction Status Date / Time ibuprofen [From Advil] AdvReac Verified 01/26/19 16:37 - Home Medications Home Medications: Ambulatory Orders Omeprazole Magnesium [Prilosec (OTC)] 40 mg PO PRN PRN 03/01/15 metFORMIN HCL [Metformin HCl] 500 mg PO BID 12/12/18 Magnesium 200 mg PO PRN PRN 01/26/19 Ondansetron HCl [Zofran] 4 mg PO PRN PRN 01/26/19 Review of Systems - Review of Systems Constitutional: reports: No Symptoms. denies: Chills, Diaphoresis, Fever, Lethargy, Loss of Appetite, Malaise, Night Sweats, Unintentional Wgt. Loss, Weakness, Other Eyes: reports: No Symptoms. denies: Blind Spots, Blurred Vision, Double Vision , Eye Pain, Floaters, Photophobia, Recent Change in Vision, Other HENT: reports: No Symptoms. denies: Difficult Swallowing, Ear Discharge, Ear Pain, Epistaxis, Gingival Bleeding, Hearing Loss, Mouth Swelling, Nasal Congestion, Ocular Prosthesis, Throat Pain, Toothache, Ringing in Ears, Other Neck: reports: No Symptoms. denies: Decreased ROM, Lumps, Pain on Movement, Stiffness, Swollen Glands, Tenderness, Other Cardiovascular: reports: No Symptoms. denies: Chest Pain, Edema, Palpitations, Shortness of Breath, Other Respiratory: reports: No Symptoms. denies: Cough, Exercise Intolerance, Hemoptysis, Orthopnea, PND, Snoring, SOB, SOB on Exertion, Wheezing, Other Gastrointestinal: reports: Abdominal Pain (minimal, controlled with pain meds) Genitourinary: reports: No Symptoms. denies: Burning, Discharge, Dysuria, Flank Pain, Frequency, Hematuria, Incontinence, Lesions, Menses, Pain, Testicular Mass, Testicular Pain, Testicular Swelling, Urgency, Vaginal Bleeding , Other Musculoskeletal: reports: No Symptoms. denies: Back Pain, Crepitus, Decreased ROM, Extremity Pain, Joint Pain, Joint Swelling, Muscle Pain, Muscle Cramps, Muscle Weakness, Other Integumentary: reports: No Symptoms. denies: Blister, Bruising, Change in Color , Eczema, Erythema, Incision, Lesions, Lump, Pallor, Pruritis, Rash, Wound, Other Neurological: reports: No Symptoms. denies: Change in LOC, Change in Speech, Confusion, Dizziness, Headache, Incoordination, Numbness, Parasthesia, Pre- Existing Deficit, Seizure, Syncope, Tremors, Unsteady Gait, Weakness, Other Endocrine: reports: No Symptoms. denies: Excessive Sweating, Flushing, Increased Hunger, Increased Thirst, Intolerance to Cold, Intolerance to Heat, Unexplained Weight Gain, Unexplained Weight Loss, Other Hematology/Lymphatic: reports: No Symptoms. denies: Easily Bruised, Excessive Bleeding, Swollen Glands, Other Psychiatric: reports: No Symptoms. denies: Altered Sleep Pattern, Anxiety, Depression, Hallucinations, Panic, Paranoia, Suicidal, Other Physical Exam Vital Signs: Vital Signs Temperature 98.6 F 01/30/19 10:00 Pulse Rate 66 01/30/19 10:00 Respiratory Rate 18 01/30/19 10:00 Blood Pressure 114/65 01/30/19 10:00 O2 Sat by Pulse Oximetry (%) 96 01/29/19 08:39 Constitutional: Yes: No Distress, Calm. No: Well Nourished, Anxious, Ashen, Cachectic, Diaphoresis, Mild Distress, Moderate Distress, Severe Distress, Obese , Pallor, Poor Hygeine, Thin, Other Eyes: Yes: Conjunctiva Clear, EOM Intact. No: WNL, Cataracts, Diplopia, Occular Prosthesis, PERRL, Ptosis, Sclera Icterus, Tearing, Other HENT: Yes: Atraumatic. No: WNL, Normocephalic, Drooling, Epistaxis, Hoarseness , Nasal Congestion, Pharyngeal Erythema, Rhinnorhea, Thrush, Tonsillar Exudate, Other Neck: Yes: Supple. No: WNL, Trachea Midline, Decreased ROM, Lymphadenopathy, Rigid, Tenderness, Thyromegaly, Other Cardiovascular: Yes: Regular Rate and Rhythm. No: WNL, Bradycardia, Tachycardia , Pulse Irregular, Bruit, JVD, Gallop, Murmur, Rub, S1, S2, S3, S4, Varicosities , Other Respiratory: Yes: CTA Bilaterally. No: WNL, Regular, Accessory Muscle Use, Bradypnea, Jhony-Maradiaga, Cough, Diminished, Dullness, Hyperresonant, Intubated , Kussmaul, Mechanically Ventilated, On BiPap, On Nasal O2, On Venti-Mask, Orthopnea, Poor Air Entry, Rales, Rhonchi, SOB, SOB on Exertion, Stridor, Tachypnea, Wheezes, Other Gastrointestinal: Yes: Soft. No: WNL, Normal Bowel Sounds, Abdomen, Obese, Ascites, Distention, Hematemesis, Hemorrhoids, Hepatomegaly, Hernia, Hyperactive Bowel Sounds, Hypoactive Bowel Sounds, Melena, Palpable Mass, Pulsatile Mass, Rectal Bleeding, Splenomegaly, Tenderness, Tenderness, Epigastrium, Tenderness, Rebound, Vomiting, Other Renal/: Yes: WNL. No: Anuria, Bladder Distention, CVA Tenderness - Left, CVA Tenderness - Right, Lange Present, Hematuria, Incontinence, Menses Present, Oliguria, Polyuria, , Scrotal Edema, Urethral Discharge, Vaginal Bleeding, Vaginal Discharge, Other Musculoskeletal: Yes: WNL. No: Back Pain, Joint Stiffness, Joint Swelling, Muscle Pain, Muscle Weakness, Other Extremities: Yes: WNL. No: Amputation, Calf Tenderness, Cold, Cool, Cyanosis, Deformity, Delayed Capillary Refill, Erythema, External Rotation, Internal Rotation, Pallor, Shortened, Other Edema: No Integumentary: Yes: WNL. No: Body Piercing, Bruising, Erythema, Incision, Jaundice, Laceration, Petechiae, Pressure Ulcer, Rash, Skin Tear, Tattoos, Tenting, Onychomycosis, Venous Stasis Changes, Other Wound/Incision: Yes: Dressing Dry and Intact, Other (abdominal binder in place, abd soft/NT/ND) Neurological: Yes: Alert, Oriented Psychiatric: Yes: Alert Labs: CBC, BMP 01/30/19 07:01 01/30/19 07:01 Problem List - Problems (1) Diabetes Code(s): E11.9 - TYPE 2 DIABETES MELLITUS WITHOUT COMPLICATIONS (2) H/O pancreatic cancer Code(s): Z85.07 - PERSONAL HISTORY OF MALIGNANT NEOPLASM OF PANCREAS (3) Incisional hernia Code(s): K43.2 - INCISIONAL HERNIA WITHOUT OBSTRUCTION OR GANGRENE (4) Anemia Code(s): D64.9 - ANEMIA, UNSPECIFIED (5) Leukocytosis, unspecified Code(s): D72.829 - ELEVATED WHITE BLOOD CELL COUNT, UNSPECIFIED Qualifiers: Leukocytosis type: unspecified Qualified Code(s): D72.829 - Elevated white blood cell count, unspecified Assessment/Plan 53 y.o. female with PMH of pancreatic neuroendocrine tumor s/p Whipple in 2017, s/p gastric sleeve, PUD, DM, anemia who underwent incisional hernia repair on with subsequent leukocytosis Leukocyttosis r/o infectious etiology vs inflammatory post-operative s/p Incisional hernia repair POD # 2 Hx of pancreatic neuroendocrine tumor s/p Whipple s/p gastric sleeve DM ? Cirrhosis Anemia -- send blood and urine cultures, chest is clear on exam -- continue empirically with Ancef for now, will re-assess need for continued antibiotic treatment -- Pt with appropriate post-op pain/ controlled -- continue monitor surgical site -- repeat cbc in am to monitor wbc trend Pt is alert/afebrile without complaints Vitals stable, continue to monitor Will follow Thank you
--- NOTE | 2019-01-30 16:26 | PN ---
Progress Note (short form) - Note Progress Note: 53 yo F s/p Open incisional hernia repair with Phasix mesh with bilateral component separation under GA. No new c/o. Taking PO. Vital Signs Temperature 98.6 F 01/30/19 10:00 Pulse Rate 66 01/30/19 10:00 Respiratory Rate 18 01/30/19 10:00 Blood Pressure 114/65 01/30/19 10:00 O2 Sat by Pulse Oximetry (%) 96 01/29/19 08:39 - No complications from GA - Care per primary service
[2019-01-30] MEDS: ONDANSETRON 4 MG/2 ML VIAL IVPUSH PRN (17:21)
[2019-01-30] MEDS ORDERED: INSULIN (NOVOLOG) ASPART 100 UNITS/ML 10ML VIAL ONE (21:27)
[2019-01-30] MEDS: PANTOPRAZOLE 40 MG TABLET (FP) PO PRN (22:00)
--- NOTE | 2019-01-30 23:10 | PN ---
Progress Note, Physician History of Present Illness: Pt tolerating diet - Current Medication List Current Medications: Active Medications Acetaminophen (Ofirmev Injection -) 1,000 mg IVPB Q6H PRN PRN Reason: pain Last Admin: 01/30/19 22:09 Dose: 1,000 mg Heparin Sodium (Porcine) (Heparin -) 5,000 unit SQ BID JUSTINO Last Admin: 01/30/19 21:58 Dose: Not Given Cefazolin Sodium 1 gm/ (Dextrose) 50 mls @ 100 mls/hr IVPB Q8H-IV JUSTINO Last Admin: 01/30/19 17:10 Dose: 100 mls/hr Sodium Chloride (Normal Saline -) 1,000 mls @ 75 mls/hr IV ASDIR JUSTINO Last Admin: 01/30/19 17:21 Dose: 75 mls/hr Insulin Aspart (Novolog Vial Sliding Scale -) 1 vial SQ ACHS [facility]; Protocol Last Admin: 01/30/19 17:05 Dose: Not Given Metformin HCl (Glucophage -) 500 mg PO BIDAC JUSTINO Last Admin: 01/30/19 17:10 Dose: 500 mg Ondansetron HCl (Zofran Injection) 4 mg IVPUSH Q6H PRN PRN Reason: NAUSEA AND/OR VOMITING Last Admin: 01/30/19 17:21 Dose: 4 mg Pantoprazole Sodium (Protonix -) 40 mg PO DAILY PRN PRN Reason: DYSPEPSIA Last Admin: 01/30/19 22:00 Dose: 40 mg - Objective Vital Signs: Vital Signs Temperature 98.7 F 01/30/19 20:50 Pulse Rate 67 01/30/19 20:50 Respiratory Rate 19 01/30/19 20:50 Blood Pressure 120/82 01/30/19 20:50 O2 Sat by Pulse Oximetry (%) 96 01/29/19 08:39 Neck: Yes: WNL, Supple Cardiovascular: Yes: WNL, Regular Rate and Rhythm Respiratory: Yes: WNL, Regular, CTA Bilaterally Gastrointestinal: Yes: Normal Bowel Sounds, Other (Minimal incisional tenderness B/L drainage tube) Labs: CBC, BMP 01/30/19 07:01 01/30/19 07:01 Problem List - Problems (1) Hernia Assessment/Plan: S/p hernia repair Pt tolerating diet WBC decreased today Repeat CBC in am Cont IV cefazolin Follow BC Will dc morphine and use IV tylenol for pain Code(s): K46.9 - UNSPECIFIED ABDOMINAL HERNIA WITHOUT OBSTRUCTION OR GANGRENE (2) Diabetes Assessment/Plan: Cont sliding scaale w/ coverage Cont metformin Code(s): E11.9 - TYPE 2 DIABETES MELLITUS WITHOUT COMPLICATIONS (3) H/O pancreatic cancer Code(s): Z85.07 - PERSONAL HISTORY OF MALIGNANT NEOPLASM OF PANCREAS
[2019-01-31] MEDS ORDERED: ceFAZolin SODIUM 1 GM VIAL ONE ×2 (00:35→10:43)
[2019-01-31] MEDS ORDERED: DEXTROSE 5%-WATER - 50 ML IVPB ONE ×2 (00:36→10:43)
[2019-01-31] MEDS: CEFAZOLIN 1 GM in DEXTROSE 5%-WATER - 50 ML IVPB SCH ×2 (01:00→13:52)
[2019-01-31] MEDS: ACETAMINOPHEN 1000 MG/100 ML VIAL (NON FORMULARY) IVPB PRN ×2 (04:58→13:43)
[2019-01-31] MEDS: metFORMIN HCL 500 MG TABLET (FP) PO SCH (06:04)
[2019-01-31] MEDS: INSULIN SLIDING SCALE (NOVOLOG) 1 VIAL SQ SCH ×2 (06:16→11:00)
[2019-01-31 08:31] LABS: BASO % 0.9 % (0-2.0); EOS % 4.9 % (0-4.5); HEMATOCRIT 27.3 % (32.4-45.2); HEMOGLOBIN 8.3 GM/dL (10.7-15.3); LYMPH % 44.1 % (8-40); MCH 21.3 pg (25.7-33.7); MCHC 30.4 g/dl (32.0-36.0); MEAN CELL VOLUME 70.2 fl (80-96); MEAN PLT VOLUME 8.5 fl (7.5-11.1); NEUT % 44.1 % (42.8-82.8); PLATELET COUNT 512 K/MM3 (134-434); RBC 3.89 M/mm3 (3.60-5.2); RDW 17.8 % (11.6-15.6); WHITE BLOOD COUNT 12.2 K/mm3 (4.0-10.0)
[2019-01-31 08:38] VITALS: BP 123/83; PULSE 77; TEMP 98.5
[2019-01-31 08:54] LABS: ALBUMIN 2.9 g/dl (3.4-5.0); BILIRUBIN,TOTAL 0.4 mg/dL (0.2-1); BLOOD UREA NITROGEN 7.7 mg/dL (7-18); CALCIUM 9.1 mg/dL (8.5-10.1); CREATININE 0.6 mg/dL (0.55-1.3); POTASSIUM 4.5 mmol/L (3.5-5.1); TOT PROT 6.2 g/dl (6.4-8.2)
[2019-01-31] MEDS: PANTOPRAZOLE 40 MG TABLET (FP) PO PRN (09:04)
[2019-01-31] MEDS: HEPARIN NA (PORCINE) 5,000 UNITS/ML 1ML VIAL SQ SCH ×2 (09:04→09:07)
--- NOTE | 2019-01-31 09:12 | PN ---
Progress Note, Physician Chief Complaint: S/P incisional hernia repair with PHASIX mesh and bilateral anterior component separation POD # 3 History of Present Illness: c/o moderate pain passed flatus and tolerating diet - Current Medication List Current Medications: Active Medications Acetaminophen (Ofirmev Injection -) 1,000 mg IVPB Q6H PRN PRN Reason: pain Last Admin: 01/31/19 04:58 Dose: 1,000 mg Heparin Sodium (Porcine) (Heparin -) 5,000 unit SQ BID JUSTINO Last Admin: 01/31/19 09:07 Dose: Not Given Cefazolin Sodium 1 gm/ (Dextrose) 50 mls @ 100 mls/hr IVPB Q8H-IV JUSTINO Last Admin: 01/31/19 01:00 Dose: 100 mls/hr Sodium Chloride (Normal Saline -) 1,000 mls @ 75 mls/hr IV ASDIR JUSTINO Last Admin: 01/30/19 17:21 Dose: 75 mls/hr Insulin Aspart (Novolog Vial Sliding Scale -) 1 vial SQ ACHS [facility]; Protocol Last Admin: 01/31/19 06:16 Dose: Not Given Metformin HCl (Glucophage -) 500 mg PO BIDAC JUSTINO Last Admin: 01/31/19 06:04 Dose: 500 mg Ondansetron HCl (Zofran Injection) 4 mg IVPUSH Q6H PRN PRN Reason: NAUSEA AND/OR VOMITING Last Admin: 01/30/19 17:21 Dose: 4 mg Pantoprazole Sodium (Protonix -) 40 mg PO DAILY PRN PRN Reason: DYSPEPSIA Last Admin: 01/31/19 09:04 Dose: 40 mg - Objective Vital Signs: Vital Signs Temperature 98.5 F 01/31/19 08:37 Pulse Rate 77 01/31/19 08:37 Respiratory Rate 18 01/31/19 08:37 Blood Pressure 123/83 01/31/19 08:37 O2 Sat by Pulse Oximetry (%) 100 01/30/19 21:00 Constitutional: Yes: No Distress Gastrointestinal: Yes: Soft, Tenderness (over midline incision), Other (GRICELDA drainage serous) Labs: CBC, BMP 01/31/19 08:05 01/31/19 08:05 Problem List - Problems (1) Incisional hernia Assessment/Plan: post-op leukocytosis resolving likely reactive May D/C home today F/U at office on Thursday for GRICELDA removal Code(s): K43.2 - INCISIONAL HERNIA WITHOUT OBSTRUCTION OR GANGRENE
[2019-01-31 10:42] LABS: PH,URINE 6.5 (5.0-8.0); URINE APPEARANCE CLEAR; URINE BILIRUBIN NEGATIVE (NEGATIVE); URINE COLOR YELLOW; URINE GLUCOSE (UA) NEGATIVE (NEGATIVE); URINE KETONE TRACE (NEGATIVE); URINE LEUK ESTERASE NEGATIVE (NEGATIVE); URINE NITRITE NEGATIVE (NEGATIVE); URINE PROTEIN NEGATIVE (NEGATIVE); URINE UROBILINOGEN 0.2 mg/dL (0.2-1.0)
--- NOTE | 2019-01-31 11:18 | PN ---
Progress Note, Physician History of Present Illness: stable no issues doing well - Current Medication List Current Medications: Active Medications Acetaminophen (Ofirmev Injection -) 1,000 mg IVPB Q6H PRN PRN Reason: pain Last Admin: 01/31/19 04:58 Dose: 1,000 mg Heparin Sodium (Porcine) (Heparin -) 5,000 unit SQ BID JUSTINO Last Admin: 01/31/19 09:07 Dose: Not Given Cefazolin Sodium 1 gm/ (Dextrose) 50 mls @ 100 mls/hr IVPB Q8H-IV JUSTINO Last Admin: 01/31/19 01:00 Dose: 100 mls/hr Sodium Chloride (Normal Saline -) 1,000 mls @ 75 mls/hr IV ASDIR JUSTINO Last Admin: 01/30/19 17:21 Dose: 75 mls/hr Insulin Aspart (Novolog Vial Sliding Scale -) 1 vial SQ ACHS [facility]; Protocol Last Admin: 01/31/19 11:00 Dose: Not Given Metformin HCl (Glucophage -) 500 mg PO BIDAC JUSTINO Last Admin: 01/31/19 06:04 Dose: 500 mg Ondansetron HCl (Zofran Injection) 4 mg IVPUSH Q6H PRN PRN Reason: NAUSEA AND/OR VOMITING Last Admin: 01/30/19 17:21 Dose: 4 mg Pantoprazole Sodium (Protonix -) 40 mg PO DAILY PRN PRN Reason: DYSPEPSIA Last Admin: 01/31/19 09:04 Dose: 40 mg - Objective Vital Signs: Vital Signs Temperature 98.5 F 01/31/19 08:37 Pulse Rate 77 01/31/19 08:37 Respiratory Rate 18 01/31/19 08:37 Blood Pressure 123/83 01/31/19 08:37 O2 Sat by Pulse Oximetry (%) 100 01/30/19 21:00 Constitutional: Yes: No Distress, Calm Cardiovascular: Yes: S1, S2 Respiratory: Yes: Regular, CTA Bilaterally Gastrointestinal: Yes: Normal Bowel Sounds, Soft Musculoskeletal: Yes: WNL Extremities: Yes: WNL Wound/Incision: Yes: Clean/Dry Neurological: Yes: Alert, Oriented Psychiatric: Yes: Alert, Oriented Labs: CBC, BMP 01/31/19 08:05 01/31/19 08:05 Assessment/Plan Problem List - Problems (1) Diabetes Code(s): E11.9 - TYPE 2 DIABETES MELLITUS WITHOUT COMPLICATIONS (2) H/O pancreatic cancer Code(s): Z85.07 - PERSONAL HISTORY OF MALIGNANT NEOPLASM OF PANCREAS (3) Incisional hernia Code(s): K43.2 - INCISIONAL HERNIA WITHOUT OBSTRUCTION OR GANGRENE (4) Anemia Code(s): D64.9 - ANEMIA, UNSPECIFIED (5) Leukocytosis, unspecified Code(s): D72.829 - ELEVATED WHITE BLOOD CELL COUNT, UNSPECIFIED Qualifiers: Leukocytosis type: unspecified Qualified Code(s): D72.829 - Elevated white blood cell count, unspecified Assessment/Plan 53 y.o. female with PMH of pancreatic neuroendocrine tumor s/p Whipple in 2017, s/p gastric sleeve, PUD, DM, anemia who underwent incisional hernia repair on with subsequent leukocytosis Leukocyttosis r/o infectious etiology vs inflammatory post-operative s/p Incisional hernia repair POD # 2 Hx of pancreatic neuroendocrine tumor s/p Whipple s/p gastric sleeve DM ? Cirrhosis Anemia plan continue current mgmt all cx results pending rest as per the team wbc trending down
[2019-01-31] MEDS: SODIUM CHLORIDE 1,000 ML IV SCH (13:52)
== END 2019-01-31 14:25 | disposition home health service (06) | DRG 355 ==
LOC: JASU-SURG 08:04 → JSAMEDAYSX 12:56 → J6S 19:02
PROVIDERS: ADMIT Internal Medicine; ATTEND Internal Medicine
PROC: 0WUF0JZ Supplement Abdominal Wall with Synthetic Substitute, Open Approach (ICD-10-PCS; principal; 2019-01-28 09:30)
DX: K43.2 Incisional hernia without obstruction or gangrene (principal); E11.9 Type 2 diabetes mellitus without complications; D72.829 Elevated white blood cell count, unspecified; D64.9 Anemia, unspecified; K74.60 Unspecified cirrhosis of liver; Z98.84 Bariatric surgery status; Z87.11 Personal history of peptic ulcer disease; Z85.07 Personal history of malignant neoplasm of pancreas
CPT/HCPCS: 36415; 80048; 80053; 81003; 82962; 85025; 87040; 87086; 87186; 94760; J0131; J1644; J7030

== ENCOUNTER 2021-02-28 13:35 | Emergency (ER) | payer OTHER ==
[2021-02-28 13:49] VITALS: BP 114/51; PULSE 110; TEMP 97.9; BMI 30.1
[2021-02-28] MEDS ORDERED: LACTATED RINGERS SOLUTION 1000 ML INFUS.BAG IV ONE (14:13)
[2021-02-28 14:47] LABS: EOS % 1.5 % (0-4.5); HEMATOCRIT 35.1 % (32.4-45.2); HEMOGLOBIN 10.9 GM/dL (10.7-15.3); LYMPH % 20.7 % (8-40); MEAN CELL VOLUME 67.8 fl (80-96); MEAN PLT VOLUME 8.1 fl (7.5-11.1); MONO % 5.6 % (3.8-10.2); NEUT % 71.2 % (42.8-82.8); PLATELET COUNT 635 10^3/uL (134-434); RBC 5.18 M/mm3 (3.60-5.2); RDW 18.4 % (11.6-15.6)
[2021-02-28 14:49] LABS: HCG,QUALITATIVE URINE Negative
[2021-02-28 14:51] LABS: EPI CELLS 10 /uL (0-25.1); HYALINE CASTS 1 /uL (0-3.1); PH,URINE 5.5 (5.0-8.0); URINE APPEARANCE CLEAR; URINE BACTERIA 2 /uL (0-1359); URINE BILIRUBIN NEGATIVE (NEGATIVE); URINE COLOR YELLOW; URINE GLUCOSE (UA) NEGATIVE (NEGATIVE); URINE KETONE NEGATIVE (NEGATIVE); URINE LEUK ESTERASE TRACE (NEGATIVE); URINE NITRITE NEGATIVE (NEGATIVE); URINE PROTEIN TRACE (NEGATIVE); URINE RBC 14 /uL (0-23.9); URINE WBC 22 /uL (0-25.8)
[2021-02-28 15:09] LABS: ALBUMIN 3.6 g/dl (3.4-5.0); CALCIUM 9.8 mg/dL (8.5-10.1)
[2021-02-28 15:13] LABS: CREATININE 0.7 mg/dL (0.55-1.3)
[2021-02-28 15:14] LABS: BILIRUBIN,TOTAL 0.4 mg/dL (0.2-1); TOT PROT 8.3 g/dl (6.4-8.2)
[2021-02-28 15:31] LABS: ANISOCYTOSIS 1+; MACROCYTOSIS 0; PLATELET ESTIMATE INCREASED; TEAR DROP CELLS 1+
[2021-02-28 16:00] LABS: BASO % 1.1 % (0-2.0); EOS % 0.9 % (0-4.5); HEMATOCRIT 33.3 % (32.4-45.2); HEMOGLOBIN 10.4 GM/dL (10.7-15.3); LYMPH % 21.3 % (8-40); MCH 21.2 pg (25.7-33.7); MCHC 31.2 g/dl (32.0-36.0); MEAN CELL VOLUME 67.9 fl (80-96); MONO % 6.4 % (3.8-10.2); NEUT % 70.3 % (42.8-82.8); PLATELET COUNT 561 10^3/uL (134-434); RBC 4.91 M/mm3 (3.60-5.2); RDW 17.5 % (11.6-15.6); WHITE BLOOD COUNT 16.3 K/mm3 (4.0-10.0)
== END 2021-02-28 17:41 | disposition home or self-care (01) ==
LOC: JER 13:35 → JERFT 13:35
DX: R53.83 Other fatigue (principal); E11.9 Type 2 diabetes mellitus without complications; Z79.4 Long term (current) use of insulin
CPT/HCPCS: 36415; 71046-TC-FY; 80053; 81003; 84703; 85025; 87086; 87804; 87807; 99284-25